=== PATIENT | female | born 1990 | race Caucasian/White ===

== ENCOUNTER 2017-07-18 04:09 | Inpatient (IN) | payer OTHER ==
[2017-07-18] MEDS ORDERED: Nalbuphine 20 MG/1 ML Amp IVPUSH PRN (04:50)
[2017-07-18] MEDS ORDERED: Sodium Chloride 0.9% 10 ML Syringe FLUSH PRN (04:50)
[2017-07-18] MEDS ORDERED: Oxytocin/Lactated Ringers 10 UNIT/1,000 ML BAG IV SCH (05:00)
[2017-07-18] MEDS: Lactated Ringers 1,000 ML IV SCH ×3 (05:10→06:37)
[2017-07-18] MEDS ORDERED: Ondansetron 4 MG/2 ML SDV IVPUSH PRN (05:35)
[2017-07-18] MEDS ORDERED: fentaNYL 100 MCG/2 ML SDV EPIDUR PRN (05:35)
[2017-07-18] MEDS ORDERED: ePHEDrine 50 MG/ML SDV IVPUSH PRN (05:35)
--- NOTE | 2017-07-18 05:40 | PCM.PREANE ---
Preanesthetic Assessment - Anesthesia/Transfusion/Family Hx Anesthesia History: Prior Anesthesia Without Reaction Family History of Anesthesia Reaction: No Transfusion History: No Prior Transfusion(s) Intubation History: Unknown - Review of Systems General: No Symptoms Pulmonary: No Symptoms Cardiovascular: Lightheadedness (dehydration with per patient (not often)) Gastrointestinal: No Symptoms (GERD), Constipation Neurological: No Symptoms Other: Reports: None (history of kidney stones with .), Sinus Problem ( seasonal allergies) - Physical Assessment NPO Status Date: 07/17/17 NPO Status Time: 19:00 Pulse: 66 O2 Sat by Pulse Oximetry: 100 Respiratory Rate: 14 Blood Pressure: 114/59 Temperature: 36.6 C Vital Signs: Last Vital Signs Temp 36.6 C 07/18/17 04:50 Pulse 66 07/18/17 04:50 Resp 14 07/18/17 04:50 BP 114/59 L 07/18/17 04:50 Pulse Ox 100 07/18/17 04:50 Height: 1.73 m Weight: 68.583 kg ASA Class: 2 Mental Status: Alert & Oriented x3 Dentition: Reports: Normal Dentition (bottom permanent retainer noted.), Caries Thyro-Mental Finger Breadths: 3 Mouth Opening Finger Breadths: 3 ROM/Head Extension: Full Lungs: Clear to Auscultation, Normal Respiratory Effort Cardiovascular: Regular Rate, Regular Rhythm, No Murmurs - Lab Values: Laboratory Last Values WBC 12.39 K/mm3 (3.98-10.04) H 07/18/17 04:55 RBC 4.08 M/mm3 (3.98-5.22) 07/18/17 04:55 Hgb 11.7 gm/L (11.2-15.7) 07/18/17 04:55 Hct 34.7 % (34.1-44.9) 07/18/17 04:55 MCV 85.0 fl (79.4-94.8) 07/18/17 04:55 MCH 28.7 pg (25.6-32.2) 07/18/17 04:55 MCHC 33.7 g/dl (32.2-35.5) 07/18/17 04:55 RDW Std Deviation 41.0 fL (36.4-46.3) 07/18/17 04:55 Plt Count 250 K/mm3 (182-369) 07/18/17 04:55 MPV 9.6 fl (9.4-12.3) 07/18/17 04:55 Neut % (Auto) 73.2 % (34.0-71.1) H 07/18/17 04:55 Lymph % (Auto) 15.8 % (19.3-51.7) L 07/18/17 04:55 [place] % (Auto) 7.7 % (4.7-12.5) 07/18/17 04:55 Eos % (Auto) 2.5 (0.7-5.8) 07/18/17 04:55 Baso % (Auto) 0.2 % (0.1-1.2) 07/18/17 04:55 Neut # (Auto) 9.06 K/mm3 (1.56-6.13) H 07/18/17 04:55 Lymph # (Auto) 1.96 K/mm3 (1.18-3.74) 07/18/17 04:55 [place] # (Auto) 0.95 K/mm3 (0.24-0.36) H 07/18/17 04:55 Eos # (Auto) 0.31 K/mm3 (0.04-0.36) 07/18/17 04:55 Baso # (Auto) 0.03 K/mm3 (0.01-0.08) 07/18/17 04:55 Above labs reviewed and noted. - Allergies Allergies/Adverse Reactions: Allergies Allergy/AdvReac Type Severity Reaction Status Date / Time amoxicillin trihydrate Allergy Hives Verified 07/18/17 04:58 [From Augmentin] potassium clavulanate Allergy Hives Verified 07/18/17 04:58 [From Augmentin] - Anesthesia Plan Pre-Op Medication Ordered: None - Acknowledgements Anesthesia Type Planned: Epidural Pt an Appropriate Candidate for the Planned Anesthesia: Yes Alternatives and Risks of Anesthesia Discussed w Pt/Guardian: Yes Pt/Guardian Understands and Agrees with Anesthesia Plan: Yes PreAnesthesia Questionnaire - Past Health History 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 History: Denies 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 History 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: - Past Surgical History HEENT Surgical History: Reports: Other (See Below) Other HEENT Surgeries/Procedures: [place] teeth 2004 - SUBSTANCE USE Smoking Status *Q: Never Smoker Second Hand Smoke Exposure: No Recreational Drug Use History: No - HOME MEDS Home Medications: Home Meds PNV95/Ferrous Fumarate/FA [ Tablet] 1 tab PO DAILY 07/18/17 [History] - CURRENT (IN HOUSE) MEDS Current Meds: Current Medications Ephedrine Sulfate (Ephedrine Sulfate) 5 mg IVPUSH ASDIRECTED PRN PRN Reason: Hypotension Fentanyl (Sublimaze) 100 mcg EPIDUR Q3H PRN PRN Reason: Pain Fentanyl/Bupivacaine HCl (Fentanyl/Bupivacaine/Ns 2 Mcg-0.125% 100 Ml) 100 ml EPIDUR ASDIRECTED SHIRLENE Lactated Ringer's (Ringers, Lactated) 1,000 mls @ 100 mls/hr IV ASDIRECTED SHIRLENE Oxytocin/Lactated Ringer's (Pitocin In Lr 10 Units/1,000 Ml) 10 unit in 1,000 mls @ 500 mls/hr IV .CONTINUOUS SHIRLENE Nalbuphine HCl (Nubain) 10 mg IVPUSH Q2H PRN PRN Reason: Pain (moderate 4-6) Ondansetron HCl (Zofran) 4 mg IVPUSH ONETIME PRN PRN Reason: Nausea/Vomiting Sodium Chloride (Saline Flush) 10 ml FLUSH ASDIRECTED PRN PRN Reason: Keep Vein Open
[2017-07-18] MEDS ORDERED: Bupivacaine/fentaNYL/NS 100 ML Bag EPIDUR SCH (05:45)
--- NOTE | 2017-07-18 07:19 | PCM.LDHP ---
L&D History of Present Illness - General Date of Service: 07/18/17 Admit Problem/Dx: Patient Status Order with Admit Dx/Problem 07/18/17 04:50 Patient Status [ADT] Routine Admission Diagnosis/Problem Admission Diagnosis/Problem Source of Information: Patient History Limitations: Reports: No Limitations - History of Present Illness Introduction:: Patient is a 26 y/o at 39 4/7 wks who presents for labor. Contractions started last PM. They became more consistent overnight. Came in and was 5-6 cm dilated on nursing exam. Now comfortable with an epidural. 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: : 3 Para: 2 LMP (Approximate): - Past Surgical History HEENT Surgical History: Reports: Other (See Below) Other HEENT Surgeries/Procedures: [place] teeth 2004 Social & Family History - Family History Family Medical History: Noncontributory - Tobacco Use Smoking Status *Q: Never Smoker Second Hand Smoke Exposure: No - Caffeine Use Caffeine Use: Reports: Coffee Other Caffeine Use: daily - Alcohol Use Alcohol Use History: No - Recreational Drug Use Recreational Drug Use: No H&P Review of Systems - Review of Systems: Review Of Systems: See Below General: Reports: No Symptoms Pulmonary: Reports: No Symptoms Cardiovascular: Reports: No Symptoms Gastrointestinal: Reports: No Symptoms Genitourinary: Reports: No Symptoms Musculoskeletal: Reports: No Symptoms Psychiatric: Reports: No Symptoms L&D Exam - Exam Exam: See Below - Vital Signs Vital Signs: Last Vital Signs Temp 36.6 C 07/18/17 05:52 Pulse 66 07/18/17 05:52 Resp 14 07/18/17 05:52 BP 114/59 L 07/18/17 05:52 Pulse Ox 100 07/18/17 05:52 Weight: 68.583 kg - OB Specific Contraction Intensity: Moderate to Strong Movement: Active Heart Tones: Present Heart Rate (FHR) Variability: Moderate (6-25 bmp) Presentation: Vertex - Lopez Score Lopez Score Cervix Position: Anterior Lopez Score Consistency: Soft Lopez Score Effacement: >80% Lopez Score Dilation: > 5 cm Lopez Score Infant's Station: +1, +2 Lopez Score Total: 13 - Exam General: Alert, Oriented, Cooperative Lungs: Clear to Auscultation, Normal Respiratory Effort Cardiovascular: Regular Rate, Regular Rhythm GI/Abdominal Exam: Soft, Non-Tender Genitourinary: Normal external exam Extremities: Normal Inspection Skin: Warm, Dry, Intact - Patient Data Lab Results Last 24 hrs: Laboratory Results - last 24 hr 07/18/17 07/18/17 Range/Units 04:55 04:55 WBC 12.39 H (3.98-10.04) K/mm3 RBC 4.08 (3.98-5.22) M/mm3 Hgb 11.7 (11.2-15.7) gm/L Hct 34.7 (34.1-44.9) % MCV 85.0 (79.4-94.8) fl MCH 28.7 (25.6-32.2) pg MCHC 33.7 (32.2-35.5) g/dl RDW Std Deviation 41.0 (36.4-46.3) fL Plt Count 250 (182-369) K/mm3 MPV 9.6 (9.4-12.3) fl Neut % (Auto) 73.2 H (34.0-71.1) % Lymph % (Auto) 15.8 L (19.3-51.7) % [place] % (Auto) 7.7 (4.7-12.5) % Eos % (Auto) 2.5 (0.7-5.8) Baso % (Auto) 0.2 (0.1-1.2) % Neut # (Auto) 9.06 H (1.56-6.13) K/mm3 Lymph # (Auto) 1.96 (1.18-3.74) K/mm3 [place] # (Auto) 0.95 H (0.24-0.36) K/mm3 Eos # (Auto) 0.31 (0.04-0.36) K/mm3 Baso # (Auto) 0.03 (0.01-0.08) K/mm3 Blood Type B POSITIVE Gel Antibody Screen Negative Result Diagrams: 07/18/17 04:55 - Problem List (1) 39 weeks gestation of SNOMED Code(s): 86164569 ICD Code: Z3A.39 - 39 WEEKS GESTATION OF Status: Acute Current Visit: Yes (2) Normal labor SNOMED Code(s): 14011375 ICD Code: O80 - ENCOUNTER FOR FULL-TERM UNCOMPLICATED DELIVERY; Z37.9 - OUTCOME OF DELIVERY, UNSPECIFIED Status: Acute Current Visit: Yes Problem List Initiated/Reviewed/Updated: Yes Orders Last 24hrs: Active Orders 24 hr Category Date Time Status Patient Status [ADT] Routine ADT 07/18/17 04:50 Active Activity as Tolerated [RC] PFP Care 07/18/17 04:50 Active Communication Order [RC] ASDIRECTED Care 07/18/17 04:50 Active Heart Tones [RC] ASDIRECTED Care 07/18/17 04:51 Active Notify Provider [RC] ASDIRECTED Care 07/18/17 05:36 Active Notify Provider [RC] PFP Care 07/18/17 04:50 Active Notify Provider [RC] PRN Care 07/18/17 04:50 Active Oxygen Therapy [RC] ASDIRECTED Care 07/18/17 05:36 Active Peripheral IV Care [RC] . DIRECTED Care 07/18/17 04:51 Active Pulse Oximetry [RC] ASDIRECTED Care 07/18/17 05:36 Active Vital Signs [RC] PER UNIT ROUTINE Care 07/18/17 04:50 Active Regular Diet [DIET] Diet 07/18/17 Breakfast Active Bupivacaine/fentaNYL/NS [fentaNYL/Bupivacaine/NS 2 MCG- Med 07/18/17 05:45 Active 0.125% 100 ML] 100 ml EPIDUR ASDIRECTED Lactated Ringers [Ringers, Lactated] 1,000 ml Med 07/18/17 05:00 Active IV ASDIRECTED Nalbuphine [Nubain] Med 07/18/17 04:50 Active 10 mg IVPUSH Q2H PRN Ondansetron [Zofran] Med 07/18/17 05:35 Active 4 mg IVPUSH ONETIME PRN Oxytocin/Lactated Ringers [Pitocin in LR 10 Units/1,000 Med 07/18/17 05:00 Active ML] 10 unit in 1,000 ml IV .CONTINUOUS Sodium Chloride 0.9% [Saline Flush] Med 07/18/17 04:50 Active 10 ml FLUSH ASDIRECTED PRN ePHEDrine [ePHEDrine Sulfate] Med 07/18/17 05:35 Active 5 mg IVPUSH ASDIRECTED PRN fentaNYL [Sublimaze] Med 07/18/17 05:35 Active 100 mcg EPIDUR Q3H PRN Electronic Heart Tones Ext w TOCO [WOMSER] Oth 07/18/17 04:50 Ordered Routine Electronic Heart Tones Internal [WOMSER] Per Unit Ot 07/18/17 04:50 Ordered Routine Peripheral IV Insertion Adult [OM.PC] Routine Ot 07/18/17 04:50 Ordered Resuscitation Status Routine Resus Stat 07/18/17 04:50 Ordered Medication Orders Ephedrine Sulfate (Ephedrine Sulfate) 5 mg IVPUSH ASDIRECTED PRN PRN Reason: Hypotension Fentanyl (Sublimaze) 100 mcg EPIDUR Q3H PRN PRN Reason: Pain Last Admin: 07/18/17 05:53 Dose: 100 mcg Fentanyl/Bupivacaine HCl (Fentanyl/Bupivacaine/Ns 2 Mcg-0.125% 100 Ml) 100 ml EPIDUR ASDIRECTED [facility] Last Admin: 07/18/17 05:53 Dose: 100 ml Lactated Ringer's (Ringers, Lactated) 1,000 mls @ 100 mls/hr IV ASDIRECTED [facility] Last Admin: 07/18/17 06:37 Dose: 125 mls/hr Infusion: 07/18/17 06:37 Dose: 999 mls/hr Admin: 07/18/17 05:41 Dose: 999 mls/hr Infusion: 07/18/17 05:41 Dose: 999 mls/hr Admin: 07/18/17 05:10 Dose: 999 mls/hr Oxytocin/Lactated Ringer's (Pitocin In Lr 10 Units/1,000 Ml) 10 unit in 1,000 mls @ 500 mls/hr IV .CONTINUOUS [facility] Nalbuphine HCl (Nubain) 10 mg IVPUSH Q2H PRN PRN Reason: Pain (moderate 4-6) Ondansetron HCl (Zofran) 4 mg IVPUSH ONETIME PRN PRN Reason: Nausea/Vomiting Sodium Chloride (Saline Flush) 10 ml FLUSH ASDIRECTED PRN PRN Reason: Keep Vein Open Assessment/Plan Comment:: 26 y/o at 39 4/7 wks presents in labor * GBS negative, no need for antibiotics * Epidural in place * Anticipate Cheryl López MD
--- NOTE | 2017-07-18 08:46 | PCM.DEL ---
L & D Note - General Info Date of Service: 07/18/17 - Delivery Note Labor: Spontaneous Delivery Outcome: Livebirth Delivery Method: Spontaneous Vaginal Delivery Delivery Mode: Spontaneous Presentation: Left Occiput Anterior (CORBY) Nuchal Cord: None Anesthesia Type: Epidural Amniotic Fluid Description: Clear Episiotomy Type: None Laceration: 2nd Degree, Perineal Suture type: Vicryl Suture size: 2-0 Placenta: Intact, Spontaneous Cord: 3 Vessels Estimated Blood Loss: 250 Resuscitation Needed: Yes [place]: Suctioned, Bulb Syringe, Stimulated, Warmed, Warmer Used Score 1 min: 8 Score 5 min: 9 Delivery Comments (Free Text/Narrative):: Patient found to be complete and began pushing. With maternal pushing effort head delivered from an CORBY presentation. No nuchal cord present. With gentle downward traction the shoulders and body delivered. Infant placed on maternal abdomen. Cord clamped and cut. Cord blood obtained. Placenta allowed time to separate and spontaneously expelled. Inspection of the perineum showed a second-degree laceration repaired with a 2-0 Vicryl in the typical fashion. - Patient Data Vitals - Most Recent: Last Vital Signs Temp 36.6 C 07/18/17 05:52 Pulse 66 07/18/17 05:52 Resp 14 07/18/17 05:52 BP 114/59 L 07/18/17 05:52 Pulse Ox 100 07/18/17 05:52 Weight - Most Recent: 68.583 kg Lab Results Last 24 Hours: Laboratory Results - last 24 hr 07/18/17 07/18/17 Range/Units 04:55 04:55 WBC 12.39 H (3.98-10.04) K/mm3 RBC 4.08 (3.98-5.22) M/mm3 Hgb 11.7 (11.2-15.7) gm/L Hct 34.7 (34.1-44.9) % MCV 85.0 (79.4-94.8) fl MCH 28.7 (25.6-32.2) pg MCHC 33.7 (32.2-35.5) g/dl RDW Std Deviation 41.0 (36.4-46.3) fL Plt Count 250 (182-369) K/mm3 MPV 9.6 (9.4-12.3) fl Neut % (Auto) 73.2 H (34.0-71.1) % Lymph % (Auto) 15.8 L (19.3-51.7) % [place] % (Auto) 7.7 (4.7-12.5) % Eos % (Auto) 2.5 (0.7-5.8) Baso % (Auto) 0.2 (0.1-1.2) % Neut # (Auto) 9.06 H (1.56-6.13) K/mm3 Lymph # (Auto) 1.96 (1.18-3.74) K/mm3 [place] # (Auto) 0.95 H (0.24-0.36) K/mm3 Eos # (Auto) 0.31 (0.04-0.36) K/mm3 Baso # (Auto) 0.03 (0.01-0.08) K/mm3 Blood Type B POSITIVE Gel Antibody Screen Negative Med Orders - Current: Current Medications Ephedrine Sulfate (Ephedrine Sulfate) 5 mg IVPUSH ASDIRECTED PRN PRN Reason: Hypotension Fentanyl (Sublimaze) 100 mcg EPIDUR Q3H PRN PRN Reason: Pain Last Admin: 07/18/17 05:53 Dose: 100 mcg Fentanyl/Bupivacaine HCl (Fentanyl/Bupivacaine/Ns 2 Mcg-0.125% 100 Ml) 100 ml EPIDUR ASDIRECTED SHIRLENE Last Admin: 07/18/17 05:53 Dose: 100 ml Lactated Ringer's (Ringers, Lactated) 1,000 mls @ 100 mls/hr IV ASDIRECTED SHIRLENE Last Admin: 07/18/17 06:37 Dose: 125 mls/hr Oxytocin/Lactated Ringer's (Pitocin In Lr 10 Units/1,000 Ml) 10 unit in 1,000 mls @ 500 mls/hr IV .CONTINUOUS SHIRLENE Last Admin: 07/18/17 08:41 Dose: 500 mls/hr Nalbuphine HCl (Nubain) 10 mg IVPUSH Q2H PRN PRN Reason: Pain (moderate 4-6) Ondansetron HCl (Zofran) 4 mg IVPUSH ONETIME PRN PRN Reason: Nausea/Vomiting Sodium Chloride (Saline Flush) 10 ml FLUSH ASDIRECTED PRN PRN Reason: Keep Vein Open - Problem List & Annotations (1) 39 weeks gestation of SNOMED Code(s): 69241572 Code(s): Z3A.39 - 39 WEEKS GESTATION OF Status: Acute Current Visit: Yes (2) Normal labor SNOMED Code(s): 54631575 Code(s): O80 - ENCOUNTER FOR FULL-TERM UNCOMPLICATED DELIVERY; Z37.9 - OUTCOME OF DELIVERY, UNSPECIFIED Status: Acute Current Visit: Yes (3) Vaginal delivery SNOMED Code(s): 436544251 Code(s): O80 - ENCOUNTER FOR FULL-TERM UNCOMPLICATED DELIVERY Status: Acute Current Visit: Yes - Problem List Review Problem List Initiated/Reviewed/Updated: Yes - My Orders Last 24 Hours: My Active Orders 07/18/17 04:50 Patient Status [ADT] Routine Activity as Tolerated [RC] PFP Communication Order [RC] ASDIRECTED Notify Provider [RC] PFP Notify Provider [RC] PRN Vital Signs [RC] PER UNIT ROUTINE Nalbuphine [Nubain] 10 mg IVPUSH Q2H PRN Sodium Chloride 0.9% [Saline Flush] 10 ml FLUSH ASDIRECTED PRN Electronic Heart Tones Ext w TOCO [WOMSER] Routine Electronic Heart Tones Internal [WOMSER] Per Unit Routine Peripheral IV Insertion Adult [OM.PC] Routine Resuscitation Status Routine 07/18/17 04:51 Heart Tones [RC] ASDIRECTED Peripheral IV Care [RC] . DIRECTED 07/18/17 05:00 Lactated Ringers [Ringers, Lactated] 1,000 ml IV ASDIRECTED Oxytocin/Lactated Ringers [Pitocin in LR 10 Units/1,000 ML] 10 unit in 1,000 ml IV .CONTINUOUS 07/18/17 Breakfast Regular Diet [DIET] - Assessment Assessment:: 26 y/o G3 now P3003 PPD#0 from at 39 4/7 wks - Plan Plan:: * Routine cares * Encourage breast feeding * Discharge home in 1-2 days Cheryl López MD
[2017-07-18] MEDS ORDERED: Witch Hazel Medicated Pads 100/Jar TOP PRN (09:00)
[2017-07-18] MEDS ORDERED: Bupivacaine 0.25% 10 ML SDV ONE ×2 (09:00)
[2017-07-18] MEDS ORDERED: Benzocaine/Menthol 20%-0.5% Spray 56 GM Canister TOP PRN (09:00)
[2017-07-18] MEDS ORDERED: Acetaminophen 325 MG Tab PO PRN (09:00)
[2017-07-18] MEDS ORDERED: Lanolin 100% Cream 7 GM Tube TOP PRN (09:00)
[2017-07-18] MEDS: Ibuprofen 600 MG Tab PO PRN ×2 (15:25→20:22)
[2017-07-18] MEDS: Docusate Sodium 100 MG Cap PO PRN (20:22)
[2017-07-19 05:17] VITALS: BP 122/64
--- NOTE | 2017-07-19 06:34 | PCM.PNPP ---
- General Info Date of Service: 07/19/17 Functional Status: Reports: Pain Controlled, Tolerating Diet, Ambulating, Urinating - Review of Systems General: Reports: No Symptoms Pulmonary: Reports: No Symptoms Cardiovascular: Reports: No Symptoms Gastrointestinal: Reports: No Symptoms Genitourinary: Reports: No Symptoms Musculoskeletal: Reports: No Symptoms - Patient Data Vital Signs - Most Recent: Last Vital Signs Temp 36.2 C 07/19/17 04:00 Pulse 74 07/19/17 04:00 Resp 15 07/19/17 04:00 BP 122/64 07/19/17 04:00 Pulse Ox 99 07/19/17 04:00 Weight - Most Recent: 68.583 kg I&O - Last 24 Hours: Intake & Output 07/18/17 07/18/17 07/19/17 14:59 22:59 06:59 Intake Total 120 Balance 120 Med Orders - Current: Current Medications Acetaminophen (Tylenol) 650 mg PO Q4H PRN PRN Reason: mild pain or fever Last Admin: 07/19/17 02:48 Dose: 650 mg Benzocaine/Menthol (Dermoplast Pain Relief [place]) 0 gm TOP ASDIRECTED PRN PRN Reason: Perineal Comfort Measure Last Admin: 07/18/17 12:13 Dose: 1 can Docusate Sodium (Colace) 100 mg PO BID PRN PRN Reason: Constipation Last Admin: 07/18/17 20:22 Dose: 100 mg Emollient Ointment (Lansinoh Hpa) 0 gm TOP ASDIRECTED PRN PRN Reason: Sore Nipples Ibuprofen (Motrin) 600 mg PO Q6H PRN PRN Reason: Mild pain or fever Last Admin: 07/18/17 20:22 Dose: 600 mg [place] (Tucks) 1 pad TOP ASDIRECTED PRN PRN Reason: Hemorrhoid pain Last Admin: 07/18/17 12:13 Dose: 1 box Discontinued Medications Ephedrine Sulfate (Ephedrine Sulfate) 5 mg IVPUSH ASDIRECTED PRN PRN Reason: Hypotension Fentanyl (Sublimaze) 100 mcg EPIDUR Q3H PRN PRN Reason: Pain Last Admin: 07/18/17 05:53 Dose: 100 mcg Fentanyl/Bupivacaine HCl (Fentanyl/Bupivacaine/Ns 2 Mcg-0.125% 100 Ml) 100 ml EPIDUR ASDIRECTED SHIRLENE Last Admin: 07/18/17 05:53 Dose: 100 ml Lactated Ringer's (Ringers, Lactated) 1,000 mls @ 100 mls/hr IV ASDIRECTED [facility] Last Admin: 07/18/17 06:37 Dose: 125 mls/hr Oxytocin/Lactated Ringer's (Pitocin In Lr 10 Units/1,000 Ml) 10 unit in 1,000 mls @ 500 mls/hr IV .CONTINUOUS [facility] Last Admin: 07/18/17 08:41 Dose: 500 mls/hr Nalbuphine HCl (Nubain) 10 mg IVPUSH Q2H PRN PRN Reason: Pain (moderate 4-6) Ondansetron HCl (Zofran) 4 mg IVPUSH ONETIME PRN PRN Reason: Nausea/Vomiting Sodium Chloride (Saline Flush) 10 ml FLUSH ASDIRECTED PRN PRN Reason: Keep Vein Open - Interaction Infant Disposition, : in Room with Family Interaction: Holding Infant Infant Feeding: Breastfed Infant; Nursed Well Support Person: - Recovery Exam Fundal Tone: Firm Fundal Level: 1 Fingerbreadths Below Umbilicus Fundal Placement: Midline Lochia Amount: Small, Moderate Lochia Color: Rubra/Red Perineum Description: Other (see below) Other Perinuem Description: 2nd degree with repair Episiotomy/Laceration: Approximated Bladder Status: Voiding Urinary Elimination: Voided - Exam General: Alert, Oriented, Cooperative GI/Abdominal Exam: Soft, Non-Tender Extremities: Normal Inspection Skin: Warm, Dry, Intact - Problem List & Annotations (1) 39 weeks gestation of SNOMED Code(s): 19064568 Code(s): Z3A.39 - 39 WEEKS GESTATION OF Status: Acute (2) Normal labor SNOMED Code(s): 58542740 Code(s): O80 - ENCOUNTER FOR FULL-TERM UNCOMPLICATED DELIVERY; Z37.9 - OUTCOME OF DELIVERY, UNSPECIFIED Status: Acute (3) Vaginal delivery SNOMED Code(s): 171970490 Code(s): O80 - ENCOUNTER FOR FULL-TERM UNCOMPLICATED DELIVERY Status: Acute - Problem List Review Problem List Initiated/Reviewed/Updated: Yes - My Orders Last 24 Hours: My Active Orders 07/18/17 09:00 Activity as Tolerated [RC] PER UNIT ROUTINE Vital Signs [RC] 12,20,04 Acetaminophen [Tylenol] 650 mg PO Q4H PRN Benzocaine/Menthol [Dermoplast Pain Relief [place]] See Dose Instructions TOP ASDIRECTED PRN Docusate Sodium [Colace] 100 mg PO BID PRN Ibuprofen [Motrin] 600 mg PO Q6H PRN Lanolin [Lansinoh HPA] See Dose Instructions TOP ASDIRECTED PRN [place] [Tucks] 1 pad TOP ASDIRECTED PRN Assess Lochia [WOMSER] Per Unit Routine Assess Uterine Involution [WOMSER] Per Unit Routine Breast Pump [WOMSER] Per Unit Routine Heat Therapy [OM.PC] PRN Ice Therapy [OM.PC] Per Unit Routine Perineal Care [OM.PC] Per Unit Routine Peripheral IV Discontinue [OM.PC] Routine Sitz Bath [OM.PC] Per Unit Routine 07/18/17 Breakfast Regular Diet [DIET] 07/19/17 06:34 Ready for Discharge [RC] PER UNIT ROUTINE 07/19/17 09:00 Heat Therapy [OM.PC] PRN - Assessment Assessment:: 26 y/o G3 now P3003 PPD#1 from at 39 4/7 wks - Plan Plan:: * Routine cares * Encourage breast feeding * Discharge home today Cheryl López MD
--- NOTE | 2017-07-19 06:34 | PCM.DCSUM1 ---
Discharge Summary - Discharge Data Discharge Date: 07/19/17 Discharge Disposition: Home, Self-Care 01 Condition: Good - Discharge Diagnosis/Problem(s) (1) 39 weeks gestation of SNOMED Code(s): 53125610 ICD Code: Z3A.39 - 39 WEEKS GESTATION OF Status: Acute (2) Normal labor SNOMED Code(s): 55464850 ICD Code: O80 - ENCOUNTER FOR FULL-TERM UNCOMPLICATED DELIVERY; Z37.9 - OUTCOME OF DELIVERY, UNSPECIFIED Status: Acute (3) Vaginal delivery SNOMED Code(s): 593582200 ICD Code: O80 - ENCOUNTER FOR FULL-TERM UNCOMPLICATED DELIVERY Status: Acute - Patient Summary/Data Complications: None Consults: None Recommended Follow-up Testing/Procedures: Follow up in 5-6 weeks for check Hospital Course: Patient is a 26 y/o at 39 4/7 wks presented in labor. She progressed well and underwent an uncomplicated . See delivery note. she was meeting all goals and requested discharge home on PPD#1 - Patient Instructions Diet: Regular Diet as Tolerated Activity: As Tolerated Activity, Other: Pelvic Rest for 6 weeks Driving: May Drive Today Showering/Bathing: May Shower Showering/Bathing, Other: May bathe Notify Provider of: Fever, Increased Pain, Swelling and Redness, Drainage, Nausea and/or Vomiting - Discharge Plan Home Medications: Home Meds Docusate Sodium [Colace] 100 mg PO BID PRN #0 cap 07/18/17 [Rx] Ibuprofen [IJD: Ibuprofen] 600 mg PO Q6H PRN #0 tablet 07/18/17 [Rx] PNV95/Ferrous Fumarate/FA [ Tablet] 1 tab PO DAILY 07/18/17 [History] Patient Handouts: Home Care Instructions for Mom, Challenges and Solutions Referrals: Justin Bradford MD [Physician] - (5-6 weeks for check) - Discharge Summary/Plan Comment DC Time >30 min.: No - Patient Data Vitals - Most Recent: Last Vital Signs Temp 36.2 C 07/19/17 04:00 Pulse 74 07/19/17 04:00 Resp 15 07/19/17 04:00 BP 122/64 07/19/17 04:00 Pulse Ox 99 07/19/17 04:00 Weight - Most Recent: 68.583 kg I&O - Last 24 hours: Intake & Output 07/18/17 07/18/17 07/19/17 14:59 22:59 06:59 Intake Total 120 Balance 120 Med Orders - Current: Current Medications Acetaminophen (Tylenol) 650 mg PO Q4H PRN PRN Reason: mild pain or fever Last Admin: 07/19/17 02:48 Dose: 650 mg Benzocaine/Menthol (Dermoplast Pain Relief [place]) 0 gm TOP ASDIRECTED PRN PRN Reason: Perineal Comfort Measure Last Admin: 07/18/17 12:13 Dose: 1 can Docusate Sodium (Colace) 100 mg PO BID PRN PRN Reason: Constipation Last Admin: 07/18/17 20:22 Dose: 100 mg Emollient Ointment (Lansinoh Hpa) 0 gm TOP ASDIRECTED PRN PRN Reason: Sore Nipples Ibuprofen (Motrin) 600 mg PO Q6H PRN PRN Reason: Mild pain or fever Last Admin: 07/18/17 20:22 Dose: 600 mg [place] (Tucks) 1 pad TOP ASDIRECTED PRN PRN Reason: Hemorrhoid pain Last Admin: 07/18/17 12:13 Dose: 1 box Discontinued Medications Ephedrine Sulfate (Ephedrine Sulfate) 5 mg IVPUSH ASDIRECTED PRN PRN Reason: Hypotension Fentanyl (Sublimaze) 100 mcg EPIDUR Q3H PRN PRN Reason: Pain Last Admin: 07/18/17 05:53 Dose: 100 mcg Fentanyl/Bupivacaine HCl (Fentanyl/Bupivacaine/Ns 2 Mcg-0.125% 100 Ml) 100 ml EPIDUR ASDIRECTED SHIRLENE Last Admin: 07/18/17 05:53 Dose: 100 ml Lactated Ringer's (Ringers, Lactated) 1,000 mls @ 100 mls/hr IV ASDIRECTED SHIRLENE Last Admin: 07/18/17 06:37 Dose: 125 mls/hr Oxytocin/Lactated Ringer's (Pitocin In Lr 10 Units/1,000 Ml) 10 unit in 1,000 mls @ 500 mls/hr IV .CONTINUOUS SHIRLENE Last Admin: 07/18/17 08:41 Dose: 500 mls/hr Nalbuphine HCl (Nubain) 10 mg IVPUSH Q2H PRN PRN Reason: Pain (moderate 4-6) Ondansetron HCl (Zofran) 4 mg IVPUSH ONETIME PRN PRN Reason: Nausea/Vomiting Sodium Chloride (Saline Flush) 10 ml FLUSH ASDIRECTED PRN PRN Reason: Keep Vein Open *Q Meaningful Use (DIS) - VTE *Q VTE Criteria *Q: - Stroke *Q Stroke Criteria *Q: - AMI *Q AMI Criteria *Q:
[2017-07-19] MEDS: Docusate Sodium 100 MG Cap PO PRN (09:35)
== END 2017-07-19 11:00 | disposition home or self-care (01) | DRG 775 ==
LOC: JD.OBCHECK 04:09 → JD.OB 04:12 → JD.OBCHECK 04:54 → JD.OB 04:57 → OBSVTOIN 08:33
PROVIDERS: ADMIT Obstetrics & Gynecology; ATTEND Obstetrics & Gynecology
PROC: 10E0XZZ Delivery of Products of Conception, External Approach (ICD-10-PCS; principal; 2017-07-18)
PROC: 0KQM0ZZ Repair Perineum Muscle, Open Approach (ICD-10-PCS; 2017-07-18)
PROC: 4A1HXFZ Monitoring of Products of Conception, Cardiac Rhythm, External Approach (ICD-10-PCS; 2017-07-18)
PROC: 00HU33Z Insertion of Infusion Device into Spinal Canal, Percutaneous Approach (ICD-10-PCS; 2017-07-18)
PROC: 3E0R3CZ (ICD-10-PCS; 2017-07-18)
PROC: 10907ZC Drainage of Amniotic Fluid, Therapeutic from Products of Conception, Via Natural or Artificial Opening (ICD-10-PCS; 2017-07-18)
DX: O70.1 Second degree perineal laceration during delivery (principal); Z37.0 Single live birth; Z3A.39 39 weeks gestation of pregnancy; Z88.1 Allergy status to other antibiotic agents
CPT/HCPCS: 36415; 85025; 86850; 86900; 86901; A9270-GY; J2590; J3010; J7120

== ENCOUNTER 2020-07-28 13:06 | Inpatient (IN) | payer OTHER ==
[~2020-07-28 13:06] MED LIST: Bupivacaine 0.25% 10 ML SDV ONE
[2020-07-28] MEDS ORDERED: Acetaminophen 325 MG Tab PO PRN ×2 (16:18→20:17)
[2020-07-28] MEDS ORDERED: Sodium Chloride 0.9% 10 ML Syringe FLUSH PRN (16:18)
[2020-07-28] MEDS ORDERED: Nalbuphine 10 MG/ML Syringe IVPUSH PRN (16:18)
[2020-07-28] MEDS: Lactated Ringers 1,000 ML IV SCH ×3 (16:30→18:03)
[2020-07-28] MEDS ORDERED: Oxytocin/Lactated Ringers 10 UNIT/1,000 ML BAG IV SCH ×2 (16:30)
--- NOTE | 2020-07-28 16:59 | PCM.LDHP ---
<Shanna Sue - Last Filed: 07/28/20 16:51> L&D History of Present Illness - General Date of Service: 07/28/20 Admit Problem/Dx: Patient Status Order with Admit Dx/Problem 07/28/20 13:15 Patient Status [ADT] Routine 07/28/20 16:18 Patient Status [ADT] Routine Admission Diagnosis/Problem Admission Diagnosis/Problem 07/28/20 16:51 Jovon Cruz is a 29 YO at 39 weeks and 5 days gestational age who presents to Labor and Delivery with contractions. Her LEXX is 07/30/2020. 07/28/20 16:53 Source of Information: Patient History Limitations: Reports: No Limitations - History of Present Illness Introduction:: Jovon Cruz is a 29 YO at 39 weeks and 5 days gestational age who presents to Labor and Delivery with contractions. Her LEXX is 07/30/2020. She is experiencing intermittent contractions that are worse while walking around. She rated them a 7 on a scale from 1-10. Laying down relieves the pain. She denies any radiation of pain. She states that the contractions are periodic in nature. Menarche at 17 YO. Cycles are regular being every 32 days. Menses last 7-10 days and have been progressively heavier after each . She states she goes through 6-7 super tampons during menses. Jovon endorses one bout of palpitations approximately "one month ago" where she could "feel her heart pounding" but went back into a normal rhythm soon after. She has a history of wearing a Holter monitor in the past. Follow up was not warranted. She has had an otherwise uncomplicated . She denies fatigue, fever, headache, vision changes, sore throat, congestion, epistaxis, chest pain, shortness of breath, constipation or diarrhea, urinary frequency, burning, or irritation, tremors, paresthesias, anemia, thyroid disorder, depression or anxiety. Last menstrual period was 10/17/2019. LEXX by ultrasound performed on 12/26/2019. First visit was on 01/02/2020 and was seen regularly during course. Group B strep was negative. Patient plans to breast feed and for epidural. TDAP was administered on 05/15/2020. Patient is Rubella immune. Influenza vaccination was 09/17/2019 Patient is blood type B positive. First trimester hemoglobin was 13.7 g/dL and platelets were 275 uL. Second trimester hemoglobin was 12.2 and platelets were 258 uL. at 39 weeks and 5 days gestational age presents to L&D with contractions. Routine labor care orders will be placed. Patient plans for epidural and plans to breast feed. Rupture of membranes occurred at 1615. Timing/Duration: Reports: gradual onset, waxing/waning Location, : Reports: Uterus Quality: Reports: Pressure Severity: Moderate Pain Score: 7 Improves with: Reports: Immobilization Worsens with: Reports: Movement - Related Data Allergies/Adverse Reactions: Allergies Allergy/AdvReac Type Severity Reaction Status Date / Time amoxicillin trihydrate Allergy Hives Verified 07/28/20 16:31 [From Augmentin] potassium clavulanate Allergy Hives Verified 07/28/20 16:31 [From Augmentin] Home Medications: Home Meds Pnv No.95/Ferrous Fum/Folic AC [ Tablet] 1 tab PO DAILY 07/18/17 [Histor y] Fexofenadine HCl [Lisa Allergy] 60 mg PO DAILY PRN 07/28/20 [History] Past Medical History - Past Health History 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 History: Denies 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 History Genitourinary History: Reports: Renal Calculus Other Genitourinary History: Kidney stones with PAYROLL 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: - Past Surgical History HEENT Surgical History: Reports: Other (See Below) Other HEENT Surgeries/Procedures: [place] teeth 2004 Social & Family History - Family History Family Medical History: Noncontributory Cardiac: Reports: Hypertension (Father) Musculoskeletal: Reports: Fibromyalgia (Mother) - Tobacco Use Smoking Status *Q: Never Smoker - Tobacco Core Measures Tobacco Use/Smoking Within Last 30 Days: No - Caffeine Use Caffeine Use: Reports: Coffee (One cup of coffee in the AM) Other Caffeine Use: daily - Alcohol Use Alcohol Use History: No - Recreational Drug Use Recreational Drug Use: No - Living Situation & Occupation Living situation: Reports: Occupation: Employed Social History Comment: Feels safe at home with and three children. Maintains a healthy diet and excercise. Traveled to [place], [place] in October 2019. H&P Review of Systems - Review of Systems: Review Of Systems: See Below General: Denies: Fever, Chills, Fatigue, Night Sweats, Weight Loss HEENT: Denies: Eye Pain, Headaches, Hearing Changes, Rhinitis, Sinus Congestion, Sore Throat, Visual Changes Pulmonary: Denies: Shortness of Breath, Pleuritic Chest Pain, Cough, Sputum, Hemoptysis Cardiovascular: Reports: Palpitations (One epidose within the past month where she experienced palpiations without complication. ). Denies: Chest Pain, Edema, Lightheadedness Gastrointestinal: Reports: Nausea (early ), Vomiting (Early ). Denies: Black Stool, Bloody Stool, Constipation, Diarrhea, Difficulty Swallowing Genitourinary: Denies: Dysuria, Frequency, Burning, Pain, Urgency Musculoskeletal: Denies: Muscle Pain, Muscle Stiffness Skin: Denies: Dryness, Pruritis, Rash, Lesions, Lumps Psychiatric: Denies: Depression, Anxiety, Suicidal Ideation, Homicidal Ideation Neurological: Denies: Dizziness, Headache, Numbness, Paresthesia, Tingling, Tremors, Weakness Hematologic/Lymphatic: Denies: Anemia, Easy Bleeding, Easy Bruising Immunologic: Reports: Seasonal Allergy (Augmentin- hives), Other L&D Exam - Exam Exam: See Below - Vital Signs Vital Signs: Last Vital Signs Temp 99 F 07/28/20 13:15 Pulse 78 07/28/20 13:15 Resp 15 07/28/20 13:15 BP 109/66 07/28/20 13:15 Pulse Ox 100 07/28/20 13:15 - OB Specific Contraction Intensity: Moderate Movement: Active Heart Tones: Present - Lopez Score Lopez Score Cervix Position: Posterior Lopez Score Consistency: Soft Lopez Score Effacement: >80% Lopez Score Dilation: 3-4 cm Lopez Score 's Station: +1, +2 Lopez Score Total: 10 - Exam General: Alert, Oriented HEENT: Conjunctiva Clear, Hearing Intact Neck: Supple, Trachea Midline Lungs: Clear to Auscultation, Normal Respiratory Effort Cardiovascular: Regular Rate, Regular Rhythm GI/Abdominal Exam: Other (Gravid) Extremities: Normal Inspection, Normal Range of Motion, No Pedal Edema Skin: Warm, Dry, Intact Psychiatric: Alert, Normal Affect, Normal Mood - Patient Data Lab Results Last 24 hrs: Laboratory Results - last 24 hr 07/28/20 Range/Units 16:30 WBC 9.92 (3.98-10.04) K/mm3 RBC 4.08 (3.98-5.22) M/mm3 Hgb 11.3 (11.2-15.7) gm/dl Hct 35.2 (34.1-44.9) % MCV 86.3 D (79.4-94.8) fl MCH 27.7 (25.6-32.2) pg MCHC 32.1 L (32.2-35.5) g/dl RDW Std Deviation 41.8 (36.4-46.3) fL Plt Count 238 (182-369) K/mm3 MPV 9.8 (9.4-12.3) fl Neut % (Auto) 76.2 H (34.0-71.1) % Lymph % (Auto) 15.8 L (19.3-51.7) % [place]urry % (Auto) 6.5 (4.7-12.5) % Eos % (Auto) 1.0 (0.7-5.8) Baso % (Auto) 0.3 (0.1-1.2) % Neut # (Auto) 7.56 H (1.56-6.13) K/mm3 Lymph # (Auto) 1.57 (1.18-3.74) K/mm3 [place] # (Auto) 0.64 H (0.24-0.36) K/mm3 Eos # (Auto) 0.10 (0.04-0.36) K/mm3 Baso # (Auto) 0.03 (0.01-0.08) K/mm3 Result Diagrams: 07/28/20 16:30 Orders Last 24hrs: Active Orders 24 hr Category Date Time Status Patient Status [ADT] Routine ADT 07/28/20 16:18 Active Activity as Tolerated [RC] PFP Care 07/28/20 16:18 Active Communication Order [RC] ASDIRECTED Care 07/28/20 16:18 Active Heart Tones [RC] ASDIRECTED Care 07/28/20 16:19 Active Notify Provider [RC] PFP Care 07/28/20 16:18 Active Notify Provider [RC] PRN Care 07/28/20 16:18 Active Peripheral IV Care [RC] . DIRECTED Care 07/28/20 16:19 Active Urinary Catheter Assessment [RC] ASDIRECTED Care 07/28/20 16:18 Active Vital Signs [RC] PER UNIT ROUTINE Care 07/28/20 13:15 Active Regular Diet [DIET] Diet 07/28/20 Dinner Active RAPID PLASMA REAGIN,RPR [CHEM] Routine Lab 07/28/20 16:30 Received Acetaminophen [TylenoL] Med 07/28/20 16:18 Active 650 mg PO Q4H PRN Lactated Ringers [Ringers, Lactated] 1,000 ml Med 07/28/20 16:30 Active IV ASDIRECTED Nalbuphine [Nubain] Med 07/28/20 16:18 Active 10 mg IVPUSH Q2H PRN Oxytocin/Lactated Ringers [Pitocin in LR 10 Units/1,000 Med 07/28/20 16:30 Active ML] 10 unit in 1,000 ml IV .CONTINUOUS Oxytocin/Lactated Ringers [Pitocin in LR 10 Units/1,000 Med 07/28/20 16:30 Active ML] 10 unit in 1,000 ml IV TITRATE Sodium Chloride 0.9% [Saline Flush] Med 07/28/20 16:18 Active 10 ml FLUSH ASDIRECTED PRN Electronic Heart Tones Ext w TOCO [WOMSER] Oth 07/28/20 16:18 Ordered Routine Electronic Heart Tones Internal [WOMSER] Per Unit Oth 07/28/20 16:18 Ordered Routine Peripheral IV Insertion Adult [OM.PC] Routine Oth 07/28/20 16:18 Ordered Resuscitation Status Routine Resus Stat 07/28/20 13:15 Ordered Medication Orders Acetaminophen (Tylenol) 650 mg PO Q4H PRN PRN Reason: Pain (Mild 1-3) and fever Lactated Ringer's (Ringers, Lactated) 1,000 mls @ 100 mls/hr IV ASDIRECTED SHIRLENE Last Admin: 07/28/20 16:30 Dose: 100 mls/hr Documented by: KAZ Oxytocin/Lactated Ringer's (Pitocin In Lr 10 Units/1,000 Ml) 10 unit in 1,000 mls @ 12 mls/hr IV TITRATE SHIRLENE; Protocol Oxytocin/Lactated Ringer's (Pitocin In Lr 10 Units/1,000 Ml) 10 unit in 1,000 mls @ 100 mls/hr IV .CONTINUOUS SHIRLENE; Protocol Nalbuphine HCl (Nubain) 10 mg IVPUSH Q2H PRN PRN Reason: Pain Sodium Chloride (Saline Flush) 10 ml FLUSH ASDIRECTED PRN PRN Reason: Keep Vein Open <TyroneelizabethJustin Long - Last Filed: 07/28/20 18:22> L&D History of Present Illness - General Admit Problem/Dx: Patient Status Order with Admit Dx/Problem 07/28/20 13:15 Patient Status [ADT] Routine 07/28/20 16:18 Patient Status [ADT] Routine Admission Diagnosis/Problem Admission Diagnosis/Problem L&D Exam - Vital Signs Vital Signs: Last Vital Signs Temp 99 F 07/28/20 13:15 Pulse 78 07/28/20 13:15 Resp 15 07/28/20 13:15 BP 109/66 07/28/20 13:15 Pulse Ox 100 07/28/20 13:15 - Patient Data Lab Results Last 24 hrs: Laboratory Results - last 24 hr 07/28/20 Range/Units 16:30 WBC 9.92 (3.98-10.04) K/mm3 RBC 4.08 (3.98-5.22) M/mm3 Hgb 11.3 (11.2-15.7) gm/dl Hct 35.2 (34.1-44.9) % MCV 86.3 D (79.4-94.8) fl MCH 27.7 (25.6-32.2) pg MCHC 32.1 L (32.2-35.5) g/dl RDW Std Deviation 41.8 (36.4-46.3) fL Plt Count 238 (182-369) K/mm3 MPV 9.8 (9.4-12.3) fl Neut % (Auto) 76.2 H (34.0-71.1) % Lymph % (Auto) 15.8 L (19.3-51.7) % Scurry % (Auto) 6.5 (4.7-12.5) % Eos % (Auto) 1.0 (0.7-5.8) Baso % (Auto) 0.3 (0.1-1.2) % Neut # (Auto) 7.56 H (1.56-6.13) K/mm3 Lymph # (Auto) 1.57 (1.18-3.74) K/mm3 [place]urry # (Auto) 0.64 H (0.24-0.36) K/mm3 Eos # (Auto) 0.10 (0.04-0.36) K/mm3 Baso # (Auto) 0.03 (0.01-0.08) K/mm3 Result Diagrams: 07/28/20 16:30 - Problem List (1) 39 weeks gestation of SNOMED Code(s): 90741825 ICD Code: Z3A.39 - 39 WEEKS GESTATION OF Status: Acute Current Visit: No Problem List Initiated/Reviewed/Updated: No Orders Last 24hrs: Active Orders 24 hr Category Date Time Status Patient Status [ADT] Routine ADT 07/28/20 16:18 Active Activity as Tolerated [RC] PFP Care 07/28/20 16:18 Active Communication Order [RC] ASDIRECTED Care 07/28/20 16:18 Active Heart Tones [RC] ASDIRECTED Care 07/28/20 16:19 Active Notify Provider [RC] ASDIRECTED Care 07/28/20 17:19 Active Notify Provider [RC] PFP Care 07/28/20 16:18 Active Notify Provider [RC] PRN Care 07/28/20 16:18 Active Peripheral IV Care [RC] . DIRECTED Care 07/28/20 16:19 Active Urinary Catheter Assessment [RC] ASDIRECTED Care 07/28/20 16:18 Active Vital Signs [RC] PER UNIT ROUTINE Care 07/28/20 13:15 Active Regular Diet [DIET] Diet 07/28/20 Dinner Active CORONAVIRUS COVID-19 RAPID [MOLEC] Stat Lab 07/28/20 18:00 Received RAPID PLASMA REAGIN,RPR [CHEM] Routine Lab 07/28/20 16:30 Received Acetaminophen [TylenoL] Med 07/28/20 16:18 Active 650 mg PO Q4H PRN Bupivacaine/fentaNYL/NS [fentaNYL/Bupivacaine/NS 2 MCG- Med 07/28/20 17:19 Active 0.125% 100 ML] 100 ml EPIDUR ASDIRECTED PRN Lactated Ringers [Ringers, Lactated] 1,000 ml Med 07/28/20 16:30 Active IV ASDIRECTED Nalbuphine [Nubain] Med 07/28/20 16:18 Active 10 mg IVPUSH Q2H PRN Oxytocin/Lactated Ringers [Pitocin in LR 10 Units/1,000 Med 07/28/20 16:30 Active ML] 10 unit in 1,000 ml IV .CONTINUOUS Oxytocin/Lactated Ringers [Pitocin in LR 10 Units/1,000 Med 07/28/20 16:30 Active ML] 10 unit in 1,000 ml IV TITRATE Sodium Chloride 0.9% [Saline Flush] Med 07/28/20 16:18 Active 10 ml FLUSH ASDIRECTED PRN diphenhydrAMINE [Benadryl] Med 07/28/20 17:19 Active 25 mg IVPUSH Q6H PRN ePHEDrine [ePHEDrine sulfate] Med 07/28/20 17:19 Active 5 mg IVPUSH ASDIRECTED PRN fentaNYL [Sublimaze] Med 07/28/20 17:19 Active 100 mcg EPIDUR Q3H PRN Electronic Heart Tones Ext w TOCO [WOMSER] Oth 07/28/20 16:18 Ordered Routine Electronic Heart Tones Internal [WOMSER] Per Unit Oth 07/28/20 16:18 Ordered Routine Peripheral IV Insertion Adult [OM.PC] Routine Oth 07/28/20 16:18 Ordered Resuscitation Status Routine Resus Stat 07/28/20 13:15 Ordered Medication Orders Acetaminophen (Tylenol) 650 mg PO Q4H PRN PRN Reason: Pain (Mild 1-3) and fever Diphenhydramine HCl (Benadryl) 25 mg IVPUSH Q6H PRN PRN Reason: pruritis Ephedrine Sulfate (Ephedrine Sulfate) 5 mg IVPUSH ASDIRECTED PRN PRN Reason: Hypotension Fentanyl (Sublimaze) 100 mcg EPIDUR Q3H PRN PRN Reason: Pain Last Admin: 07/28/20 17:44 Dose: 100 mcg Documented by: KAZ Fentanyl/Bupivacaine HCl (Fentanyl/Bupivacaine/Ns 2 Mcg-0.125% 100 Ml) 100 ml EPIDUR ASDIRECTED PRN PRN Reason: Pain Last Admin: 07/28/20 17:44 Dose: 100 ml Documented by: KAZ Lactated Ringer's (Ringers, Lactated) 1,000 mls @ 100 mls/hr IV ASDIRECTED SHIRLENE Last Admin: 07/28/20 18:03 Dose: 100 mls/hr Documented by: Infusion: 07/28/20 18:03 Dose: 100 mls/hr Documented by: [id number] Admin: 07/28/20 17:25 Dose: 100 mls/hr Documented by: [email or web address] Infusion: 07/28/20 17:25 Dose: 100 mls/hr Documented by: [id number] Admin: 07/28/20 16:30 Dose: 100 mls/hr Documented by: [id number] Oxytocin/Lactated Ringer's (Pitocin In Lr 10 Units/1,000 Ml) 10 unit in 1,000 mls @ 12 mls/hr IV TITRATE SHIRLENE; Protocol Oxytocin/Lactated Ringer's (Pitocin In Lr 10 Units/1,000 Ml) 10 unit in 1,000 mls @ 100 mls/hr IV .CONTINUOUS SHIRLENE; Protocol Nalbuphine HCl (Nubain) 10 mg IVPUSH Q2H PRN PRN Reason: Pain Sodium Chloride (Saline Flush) 10 ml FLUSH ASDIRECTED PRN PRN Reason: Keep Vein Open Assessment/Plan Comment:: Patient seen and examined by me and discussed with student. Plan delivery
[2020-07-28] MEDS ORDERED: ePHEDrine 50 MG/ML SDV IVPUSH PRN (17:19)
[2020-07-28] MEDS ORDERED: diphenhydrAMINE 50 MG/ML SDV IVPUSH PRN (17:19)
[2020-07-28] MEDS ORDERED: fentaNYL 100 MCG/2 ML SDV EPIDUR PRN (17:19)
[2020-07-28] MEDS ORDERED: Bupivacaine/fentaNYL/NS 100 ML Bag EPIDUR PRN (17:19)
--- NOTE | 2020-07-28 17:50 | PCM.PREANE ---
Preanesthetic Assessment - Procedure Proposed Procedure: tc - Anesthesia/Transfusion/Family Hx Anesthesia History: Prior Anesthesia Without Reaction Family History of Anesthesia Reaction: No Transfusion History: No Prior Transfusion(s) Intubation History: Unknown - Review of Systems General: No Symptoms Pulmonary: No Symptoms Cardiovascular: No Symptoms Gastrointestinal: No Symptoms Neurological: No Symptoms Other: Reports: None - Physical Assessment Vital Signs: Last Vital Signs Temp 99 F 07/28/20 13:15 Pulse 78 07/28/20 13:15 Resp 15 07/28/20 13:15 BP 109/66 07/28/20 13:15 Pulse Ox 100 07/28/20 13:15 Height: 5 ft 8 in Weight: 69.4 kg ASA Class: 2 Mental Status: Alert & Oriented x3 Airway Class: Mallampati = 1 Dentition: Reports: Normal Dentition Thyro-Mental Finger Breadths: 3 Mouth Opening Finger Breadths: 3 ROM/Head Extension: Full Lungs: Clear to Auscultation, Normal Respiratory Effort Cardiovascular: Regular Rate, Regular Rhythm - Lab Values: Laboratory Last Values WBC 9.92 K/mm3 (3.98-10.04) 07/28/20 16:30 RBC 4.08 M/mm3 (3.98-5.22) 07/28/20 16:30 Hgb 11.3 gm/dl (11.2-15.7) 07/28/20 16:30 Hct 35.2 % (34.1-44.9) 07/28/20 16:30 MCV 86.3 fl (79.4-94.8) D 07/28/20 16:30 MCH 27.7 pg (25.6-32.2) 07/28/20 16:30 MCHC 32.1 g/dl (32.2-35.5) L 07/28/20 16:30 RDW Std Deviation 41.8 fL (36.4-46.3) 07/28/20 16:30 Plt Count 238 K/mm3 (182-369) 07/28/20 16:30 MPV 9.8 fl (9.4-12.3) 07/28/20 16:30 Neut % (Auto) 76.2 % (34.0-71.1) H 07/28/20 16:30 Lymph % (Auto) 15.8 % (19.3-51.7) L 07/28/20 16:30 [place] % (Auto) 6.5 % (4.7-12.5) 07/28/20 16:30 Eos % (Auto) 1.0 (0.7-5.8) 07/28/20 16:30 Baso % (Auto) 0.3 % (0.1-1.2) 07/28/20 16:30 Neut # (Auto) 7.56 K/mm3 (1.56-6.13) H 07/28/20 16:30 Lymph # (Auto) 1.57 K/mm3 (1.18-3.74) 07/28/20 16:30 [place] # (Auto) 0.64 K/mm3 (0.24-0.36) H 07/28/20 16:30 Eos # (Auto) 0.10 K/mm3 (0.04-0.36) 07/28/20 16:30 Baso # (Auto) 0.03 K/mm3 (0.01-0.08) 07/28/20 16:30 - Allergies Allergies/Adverse Reactions: Allergies Allergy/AdvReac Type Severity Reaction Status Date / Time amoxicillin trihydrate Allergy Hives Verified 07/28/20 16:31 [From Augmentin] potassium clavulanate Allergy Hives Verified 07/28/20 16:31 [From Augmentin] - Blood Blood Available: No - Acknowledgements Anesthesia Type Planned: Epidural Pt an Appropriate Candidate for the Planned Anesthesia: Yes Alternatives and Risks of Anesthesia Discussed w Pt/Guardian: Yes Pt/Guardian Understands and Agrees with Anesthesia Plan: Yes PreAnesthesia Questionnaire - Past Health History 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 History: Denies 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 History Cardiovascular History: Reports: None Respiratory History: Reports: None, Other (See Below) (seasonal allergeis) Gastrointestinal History: Reports: GERD (with preg) Genitourinary History: Reports: Renal Calculus 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 Genitourinary History: 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 Para: 3 Endocrine/Metabolic History: Reports: None Oncologic (Cancer) History: Reports: None - Past Surgical History HEENT Surgical History: Reports: Other (See Below) Other HEENT Surgeries/Procedures: [place] teeth 2004 - SUBSTANCE USE Smoking Status *Q: Never Smoker Tobacco Use Within Last Twelve Months: No Second Hand Smoke Exposure: No Days Per Week of Alcohol Use: 0 Recreational Drug Use History: No - HOME MEDS Home Medications: Home Meds Pnv No.95/Ferrous Fum/Folic AC [ Tablet] 1 tab PO DAILY 07/18/17 [History] Fexofenadine HCl [Lisa Allergy] 60 mg PO DAILY PRN 07/28/20 [History] - CURRENT (IN HOUSE) MEDS Current Meds: Current Medications Acetaminophen (Tylenol) 650 mg PO Q4H PRN PRN Reason: Pain (Mild 1-3) and fever Diphenhydramine HCl (Benadryl) 25 mg IVPUSH Q6H PRN PRN Reason: pruritis Ephedrine Sulfate (Ephedrine Sulfate) 5 mg IVPUSH ASDIRECTED PRN PRN Reason: Hypotension Fentanyl (Sublimaze) 100 mcg EPIDUR Q3H PRN PRN Reason: Pain Last Admin: 07/28/20 17:44 Dose: 100 mcg Documented by: Fentanyl/Bupivacaine HCl (Fentanyl/Bupivacaine/Ns 2 Mcg-0.125% 100 Ml) 100 ml EPIDUR ASDIRECTED PRN PRN Reason: Pain Last Admin: 07/28/20 17:44 Dose: 100 ml Documented by: Lactated Ringer's (Ringers, Lactated) 1,000 mls @ 100 mls/hr IV ASDIRECTED SHIRLENE Last Admin: 07/28/20 17:25 Dose: 100 mls/hr Documented by: Oxytocin/Lactated Ringer's (Pitocin In Lr 10 Units/1,000 Ml) 10 unit in 1,000 mls @ 12 mls/hr IV TITRATE SHIRLENE; Protocol Oxytocin/Lactated Ringer's (Pitocin In Lr 10 Units/1,000 Ml) 10 unit in 1,000 mls @ 100 mls/hr IV .CONTINUOUS SHIRLENE; Protocol Nalbuphine HCl (Nubain) 10 mg IVPUSH Q2H PRN PRN Reason: Pain Sodium Chloride (Saline Flush) 10 ml FLUSH ASDIRECTED PRN PRN Reason: Keep Vein Open
--- NOTE | 2020-07-28 19:50 | PCM.DEL ---
L & D Note - General Info Date of Service: 07/28/20 Mother's Due Date: 07/30/20 - Delivery Note Labor: Spontaneous, Augmented by ARM Delivery Outcome: Livebirth (Male liveborn 07/28/2020 at 1929 hrs. 3820 g / 8 pounds 6.7 ounces Apgars 8/9 no nuchal cord) Infant Delivery Method: Spontaneous Vaginal Delivery-Single Delivery Mode: Spontaneous Presentation: Left Occiput Anterior (CORBY) Nuchal Cord: None Prep: Povidone-Iodine (Betadine Anesthesia Type: Epidural Episiotomy Type: None Laceration: 1st Degree (Superficial not bleeding not sutured less than 1 cm in length) Placenta: Intact, Spontaneous (07/28/2020 at 1932 hrs. examined intact troy, [place]) Cord: 3 Vessels Estimated Blood Loss: 250 Resuscitation Needed: No : Suctioned, Bulb Syringe, Stimulated, Warmed, Finley Used, Warmer Used Provider: Justin Bradford Score 1 min: 8 Score 5 min: 9 - General Info Date of Service: 07/28/20 Functional Status: Reports: Pain Controlled - Review of Systems General: Reports: No Symptoms HEENT: Reports: No Symptoms Pulmonary: Reports: No Symptoms Cardiovascular: Reports: No Symptoms Gastrointestinal: Reports: No Symptoms Genitourinary: Reports: No Symptoms Musculoskeletal: Reports: No Symptoms Skin: Reports: No Symptoms Neurological: Reports: No Symptoms Psychiatric: Reports: No Symptoms - Patient Data Vitals - Most Recent: Last Vital Signs Temp 99 F 07/28/20 13:15 Pulse 78 07/28/20 13:15 Resp 15 07/28/20 13:15 BP 109/66 07/28/20 13:15 Pulse Ox 100 07/28/20 13:15 Weight - Most Recent: 153 lb I&O - Last 24 Hours: Intake & Output 07/28/20 07/28/20 07/28/20 06:59 14:59 22:59 Intake Total 1999 Balance 1999 Lab Results Last 24 Hours: Laboratory Results - last 24 hr 07/28/20 07/28/20 Range/Units 16:30 18:00 WBC 9.92 (3.98-10.04) K/mm3 RBC 4.08 (3.98-5.22) M/mm3 Hgb 11.3 (11.2-15.7) gm/dl Hct 35.2 (34.1-44.9) % MCV 86.3 D (79.4-94.8) fl MCH 27.7 (25.6-32.2) pg MCHC 32.1 L (32.2-35.5) g/dl RDW Std Deviation 41.8 (36.4-46.3) fL Plt Count 238 (182-369) K/mm3 MPV 9.8 (9.4-12.3) fl Neut % (Auto) 76.2 H (34.0-71.1) % Lymph % (Auto) 15.8 L (19.3-51.7) % [place] % (Auto) 6.5 (4.7-12.5) % Eos % (Auto) 1.0 (0.7-5.8) Baso % (Auto) 0.3 (0.1-1.2) % Neut # (Auto) 7.56 H (1.56-6.13) K/mm3 Lymph # (Auto) 1.57 (1.18-3.74) K/mm3 [place] # (Auto) 0.64 H (0.24-0.36) K/mm3 Eos # (Auto) 0.10 (0.04-0.36) K/mm3 Baso # (Auto) 0.03 (0.01-0.08) K/mm3 COVID-19 (SUZY) Negative (NEGATIVE) Med Orders - Current: Current Medications Acetaminophen (Tylenol) 650 mg PO Q4H PRN PRN Reason: Pain (Mild 1-3) and fever Diphenhydramine HCl (Benadryl) 25 mg IVPUSH Q6H PRN PRN Reason: pruritis Ephedrine Sulfate (Ephedrine Sulfate) 5 mg IVPUSH ASDIRECTED PRN PRN Reason: Hypotension Fentanyl (Sublimaze) 100 mcg EPIDUR Q3H PRN PRN Reason: Pain Last Admin: 07/28/20 17:44 Dose: 100 mcg Documented by: Fentanyl/Bupivacaine HCl (Fentanyl/Bupivacaine/Ns 2 Mcg-0.125% 100 Ml) 100 ml EPIDUR ASDIRECTED PRN PRN Reason: Pain Last Admin: 07/28/20 17:44 Dose: 100 ml Documented by: Lactated Ringer's (Ringers, Lactated) 1,000 mls @ 100 mls/hr IV ASDIRECTED SHIRLENE Last Admin: 07/28/20 18:03 Dose: 100 mls/hr Documented by: Oxytocin/Lactated Ringer's (Pitocin In Lr 10 Units/1,000 Ml) 10 unit in 1,000 mls @ 12 mls/hr IV TITRATE SHIRLENE; Protocol Last Admin: 07/28/20 18:36 Dose: 2 munits/min, 12 mls/hr Documented by: Oxytocin/Lactated Ringer's (Pitocin In Lr 10 Units/1,000 Ml) 10 unit in 1,000 mls @ 100 mls/hr IV .CONTINUOUS SHIRLENE; Protocol Nalbuphine HCl (Nubain) 10 mg IVPUSH Q2H PRN PRN Reason: Pain Sodium Chloride (Saline Flush) 10 ml FLUSH ASDIRECTED PRN PRN Reason: Keep Vein Open - Exam General: Alert, Oriented HEENT: Pupils Equal, Mucous Membr. Moist/[place] Neck: Supple, Trachea Midline Lungs: Clear to Auscultation, Normal Respiratory Effort Cardiovascular: Regular Rate, Regular Rhythm GI/Abdominal Exam: Normal Bowel Sounds, Soft, Non-Tender Extremities: Normal Inspection, Non-Tender, No Pedal Edema, Normal Capillary Refill Skin: Warm, Dry, Intact Psy/Mental Status: Alert, Normal Affect, Normal Mood - Problem List & Annotations (1) 39 weeks gestation of SNOMED Code(s): 27688032 Code(s): Z3A.39 - 39 WEEKS GESTATION OF Status: Acute Current Visit: No (2) First degree laceration of perineum, delivered, current hospitalization SNOMED Code(s): 701083698, 386760393 Code(s): O70.0 - FIRST DEGREE PERINEAL LACERATION DURING DELIVERY Status: Acute Current Visit: Yes (3) Delivery normal SNOMED Code(s): 24531949, 789186146 Code(s): O80 - ENCOUNTER FOR FULL-TERM UNCOMPLICATED DELIVERY Status: Acute Current Visit: Yes - Problem List Review Problem List Initiated/Reviewed/Updated: No - My Orders Last 24 Hours: My Active Orders 07/28/20 13:15 Vital Signs [RC] PER UNIT ROUTINE Resuscitation Status Routine 07/28/20 16:18 Patient Status [ADT] Routine Activity as Tolerated [RC] PFP Communication Order [RC] ASDIRECTED Notify Provider [RC] PFP Notify Provider [RC] PRN Urinary Catheter Assessment [RC] ASDIRECTED Acetaminophen [TylenoL] 650 mg PO Q4H PRN Nalbuphine [Nubain] 10 mg IVPUSH Q2H PRN Sodium Chloride 0.9% [Saline Flush] 10 ml FLUSH ASDIRECTED PRN Electronic Heart Tones Ext w TOCO [WOMSER] Routine Electronic Heart Tones Internal [WOMSER] Per Unit Routine Peripheral IV Insertion Adult [OM.PC] Routine 07/28/20 16:19 Heart Tones [RC] ASDIRECTED Peripheral IV Care [RC] . DIRECTED 07/28/20 16:30 RAPID PLASMA REAGIN,RPR [CHEM] Routine Lactated Ringers [Ringers, Lactated] 1,000 ml IV ASDIRECTED Oxytocin/Lactated Ringers [Pitocin in LR 10 Units/1,000 ML] 10 unit in 1,000 ml IV .CONTINUOUS Oxytocin/Lactated Ringers [Pitocin in LR 10 Units/1,000 ML] 10 unit in 1,000 ml IV TITRATE 07/28/20 Dinner Regular Diet [DIET] - Plan Plan:: Patient seen and examined by me and discussed with student. Plan delivery
[2020-07-28] MEDS ORDERED: Docusate Sodium 100 MG Cap PO PRN (20:17)
[2020-07-28] MEDS ORDERED: Loratadine 10 MG Tab PO PRN (20:22)
[2020-07-28] MEDS ORDERED: Benzocaine/Menthol 20%-0.5% Spray 56 GM Canister TOP PRN (20:47)
[2020-07-28] MEDS ORDERED: Witch Hazel Medicated Pads 40/Jar TOP PRN (20:47)
[2020-07-28] MEDS: Ibuprofen 600 MG Tab PO PRN (21:07)
--- NOTE | 2020-07-29 08:06 | PCM48HPAN ---
Post Anesthesia Note - EVALUATION WITHIN 48HRS OF ANESTHETIC Vital Signs in Normal Range: Yes Patient Participated in Evaluation: Yes Respiratory Function Stable: Yes Airway Patent: Yes Cardiovascular Function Stable: Yes Hydration Status Stable: Yes Pain Control Satisfactory: Yes Nausea and Vomiting Control Satisfactory: Yes Mental Status Recovered: Yes Vital Signs: Last Vital Signs Temp 36.7 C 07/29/20 04:30 Pulse 62 07/29/20 04:30 Resp 14 07/29/20 04:30 BP 106/69 07/29/20 04:30 Pulse Ox 100 07/28/20 13:15
[2020-07-29] MEDS ORDERED: Prenatal Multivitamin with Calcium/Folic Acid/Iron Tab PO SCH (09:00)
--- NOTE | 2020-07-29 10:46 | PCM.DCSUM1 ---
Discharge Summary - Hospital Course Free Text/Narrative:: [place] [facility] L/D Delivery Note Patient Name: FELECIA MARI Date of : 89 Patient Status: Inpatient Attending Provider: Justin Bradford Date: 07/28/20 19:44 Initialization Date: 07/28/20 19:44 L & D Note - General Info Date of Service: 07/28/20 Mother's Due Date: 07/30/20 - Delivery Note Labor: Spontaneous, Augmented by ARM Delivery Outcome: Livebirth (Male liveborn 07/28/2020 at 1929 hrs. 3820 g / 8 pounds 6.7 ounces Apgars 8/9 no nuchal cord) Delivery Method: Spontaneous Vaginal Delivery-Single Infant Delivery Mode: Spontaneous Presentation: Left Occiput Anterior (CORBY) Nuchal Cord: None Prep: Povidone-Iodine (Betadine Anesthesia Type: Epidural Episiotomy Type: None Laceration: 1st Degree (Superficial not bleeding not sutured less than 1 cm in length) Placenta: Intact, Spontaneous (07/28/2020 at 1932 hrs. examined intact Cameron simmons) Cord: 3 Vessels Estimated Blood Loss: 250 Resuscitation Needed: No : Suctioned, Bulb Syringe, Stimulated, Warmed, [place] Used, Warmer Used Provider: Justin Bradford Score 1 min: 8 Score 5 min: 9 - General Info Date of Service: 07/28/20 Functional Status: Reports: Pain Controlled - Review of Systems General: Reports: No Symptoms HEENT: Reports: No Symptoms Pulmonary: Reports: No Symptoms Cardiovascular: Reports: No Symptoms Gastrointestinal: Reports: No Symptoms Genitourinary: Reports: No Symptoms Musculoskeletal: Reports: No Symptoms Skin: Reports: No Symptoms Neurological: Reports: No Symptoms Psychiatric: Reports: No Symptoms - Patient Data Vitals - Most Recent: Last Vital Signs Temp 99 F 07/28/20 13:15 Pulse 78 07/28/20 13:15 Resp 15 07/28/20 13:15 BP 109/66 07/28/20 13:15 Pulse Ox 100 07/28/20 13:15 Weight - Most Recent: 153 lb I&O - Last 24 Hours: Intake & Output 07/28/20 07/28/20 07/28/20 06:59 14:59 22:59 Intake Total 1999 Balance 1999 Lab Results Last 24 Hours: Laboratory Results - last 24 hr 07/28/20 07/28/20 Range/Units 16:30 18:00 WBC 9.92 (3.98-10.04) K/mm3 RBC 4.08 (3.98-5.22) M/mm3 Hgb 11.3 (11.2-15.7) gm/dl Hct 35.2 (34.1-44.9) % MCV 86.3 D (79.4-94.8) fl MCH 27.7 (25.6-32.2) pg MCHC 32.1 L (32.2-35.5) g/dl RDW Std Deviation 41.8 (36.4-46.3) fL Plt Count 238 (182-369) K/mm3 MPV 9.8 (9.4-12.3) fl Neut % (Auto) 76.2 H (34.0-71.1) % Lymph % (Auto) 15.8 L (19.3-51.7) % Storey % (Auto) 6.5 (4.7-12.5) % Eos % (Auto) 1.0 (0.7-5.8) Baso % (Auto) 0.3 (0.1-1.2) % Neut # (Auto) 7.56 H (1.56-6.13) K/mm3 Lymph # (Auto) 1.57 (1.18-3.74) K/mm3 Storey # (Auto) 0.64 H (0.24-0.36) K/mm3 Eos # (Auto) 0.10 (0.04-0.36) K/mm3 Baso # (Auto) 0.03 (0.01-0.08) K/mm3 COVID-19 (SUZY) Negative (NEGATIVE) Med Orders - Current: Current Medications Acetaminophen (Tylenol) 650 mg PO Q4H PRN PRN Reason: Pain (Mild 1-3) and fever Diphenhydramine HCl (Benadryl) 25 mg IVPUSH Q6H PRN PRN Reason: pruritis Ephedrine Sulfate (Ephedrine Sulfate) 5 mg IVPUSH ASDIRECTED PRN PRN Reason: Hypotension Fentanyl (Sublimaze) 100 mcg EPIDUR Q3H PRN PRN Reason: Pain Last Admin: 07/28/20 17:44 Dose: 100 mcg Documented by: Fentanyl/Bupivacaine HCl (Fentanyl/Bupivacaine/Ns 2 Mcg-0.125% 100 Ml) 100 ml EPIDUR ASDIRECTED PRN PRN Reason: Pain Last Admin: 07/28/20 17:44 Dose: 100 ml Documented by: Lactated Ringer's (Ringers, Lactated) 1,000 mls @ 100 mls/hr IV ASDIRECTED SHIRLENE Last Admin: 07/28/20 18:03 Dose: 100 mls/hr Documented by: Oxytocin/Lactated Ringer's (Pitocin In Lr 10 Units/1,000 Ml) 10 unit in 1,000 mls @ 12 mls/hr IV TITRATE SHIRLENE; Protocol Last Admin: 07/28/20 18:36 Dose: 2 munits/min, 12 mls/hr Documented by: Oxytocin/Lactated Ringer's (Pitocin In Lr 10 Units/1,000 Ml) 10 unit in 1,000 mls @ 100 mls/hr IV .CONTINUOUS SHIRLENE; Protocol Nalbuphine HCl (Nubain) 10 mg IVPUSH Q2H PRN PRN Reason: Pain Sodium Chloride (Saline Flush) 10 ml FLUSH ASDIRECTED PRN PRN Reason: Keep Vein Open - Exam General: Alert, Oriented HEENT: Pupils Equal, Mucous Membr. Moist/[place] Neck: Supple, Trachea Midline Lungs: Clear to Auscultation, Normal Respiratory Effort Cardiovascular: Regular Rate, Regular Rhythm GI/Abdominal Exam: Normal Bowel Sounds, Soft, Non-Tender Extremities: Normal Inspection, Non-Tender, No Pedal Edema, Normal Capillary Refill Skin: Warm, Dry, Intact Psy/Mental Status: Alert, Normal Affect, Normal Mood - Problem List & Annotations (1) 39 weeks gestation of SNOMED Code(s): 41694654 Code(s): Z3A.39 - 39 WEEKS GESTATION OF Status: Acute Current Visit: No (2) First degree laceration of perineum, delivered, current hospitalization SNOMED Code(s): 585600084, 883440634 Code(s): O70.0 - FIRST DEGREE PERINEAL LACERATION DURING DELIVERY Status: Acute Current Visit: Yes (3) Delivery normal SNOMED Code(s): 65967514, 157971704 Code(s): O80 - ENCOUNTER FOR FULL-TERM UNCOMPLICATED DELIVERY Status: Acute Current Visit: Yes - Problem List Review Problem List Initiated/Reviewed/Updated: No - My Orders Last 24 Hours: My Active Orders 07/28/20 13:15 Vital Signs [RC] PER UNIT ROUTINE Resuscitation Status Routine 07/28/20 16:18 Patient Status [ADT] Routine Activity as Tolerated [RC] PFP Communication Order [RC] ASDIRECTED Notify Provider [RC] PFP Notify Provider [RC] PRN Urinary Catheter Assessment [RC] ASDIRECTED Acetaminophen [TylenoL] 650 mg PO Q4H PRN Nalbuphine [Nubain] 10 mg IVPUSH Q2H PRN Sodium Chloride 0.9% [Saline Flush] 10 ml FLUSH ASDIRECTED PRN Electronic Heart Tones Ext w TOCO [WOMSER] Routine Electronic Heart Tones Internal [WOMSER] Per Unit Routine Peripheral IV Insertion Adult [OM.PC] Routine 07/28/20 16:19 Heart Tones [RC] ASDIRECTED Peripheral IV Care [RC] . DIRECTED 07/28/20 16:30 RAPID PLASMA REAGIN,RPR [CHEM] Routine Lactated Ringers [Ringers, Lactated] 1,000 ml IV ASDIRECTED Oxytocin/Lactated Ringers [Pitocin in LR 10 Units/1,000 ML] 10 unit in 1,000 ml IV .CONTINUOUS Oxytocin/Lactated Ringers [Pitocin in LR 10 Units/1,000 ML] 10 unit in 1,000 ml IV TITRATE 07/28/20 Dinner Regular Diet [DIET] - Plan Plan:: Patient seen and examined by me and discussed with student. Plan delivery HPI Initial Comments: [place] [facility] L/D Delivery Note Patient Name: FELECIA MARI Date of : 89 Patient Status: Inpatient Attending Provider: Justin Bradford Date: 07/28/20 19:44 Initialization Date: 07/28/20 19:44 L & D Note - General Info Date of Service: 07/28/20 Mother's Due Date: 07/30/20 - Delivery Note Labor: Spontaneous, Augmented by ARM Delivery Outcome: Livebirth (Male liveborn 07/28/2020 at 1929 hrs. 3820 g / 8 pounds 6.7 ounces Apgars 8/9 no nuchal cord) Delivery Method: Spontaneous Vaginal Delivery-Single Infant Delivery Mode: Spontaneous Presentation: Left Occiput Anterior (CORBY) Nuchal Cord: None Prep: Povidone-Iodine (Betadine Anesthesia Type: Epidural Episiotomy Type: None Laceration: 1st Degree (Superficial not bleeding not sutured less than 1 cm in l ength) Placenta: Intact, Spontaneous (07/28/2020 at 1932 hrs. examined intact discarded, Cameron) Cord: 3 Vessels Estimated Blood Loss: 250 Resuscitation Needed: No : Suctioned, Bulb Syringe, Stimulated, Warmed, [place] Used, Warmer Used Provider: Justin Bradford Score 1 min: 8 Score 5 min: 9 - General Info Date of Service: 07/28/20 Functional Status: Reports: Pain Controlled - Review of Systems General: Reports: No Symptoms HEENT: Reports: No Symptoms Pulmonary: Reports: No Symptoms Cardiovascular: Reports: No Symptoms Gastrointestinal: Reports: No Symptoms Genitourinary: Reports: No Symptoms Musculoskeletal: Reports: No Symptoms Skin: Reports: No Symptoms Neurological: Reports: No Symptoms Psychiatric: Reports: No Symptoms - Patient Data Vitals - Most Recent: Last Vital Signs Temp 99 F 07/28/20 13:15 Pulse 78 07/28/20 13:15 Resp 15 07/28/20 13:15 BP 109/66 07/28/20 13:15 Pulse Ox 100 07/28/20 13:15 Weight - Most Recent: 153 lb I&O - Last 24 Hours: Intake & Output 07/28/20 07/28/20 07/28/20 06:59 14:59 22:59 Intake Total 1999 Balance 1999 Lab Results Last 24 Hours: Laboratory Results - last 24 hr 07/28/20 07/28/20 Range/Units 16:30 18:00 WBC 9.92 (3.98-10.04) K/mm3 RBC 4.08 (3.98-5.22) M/mm3 Hgb 11.3 (11.2-15.7) gm/dl Hct 35.2 (34.1-44.9) % MCV 86.3 D (79.4-94.8) fl MCH 27.7 (25.6-32.2) pg MCHC 32.1 L (32.2-35.5) g/dl RDW Std Deviation 41.8 (36.4-46.3) fL Plt Count 238 (182-369) K/mm3 MPV 9.8 (9.4-12.3) fl Neut % (Auto) 76.2 H (34.0-71.1) % Lymph % (Auto) 15.8 L (19.3-51.7) % [place]y % (Auto) 6.5 (4.7-12.5) % Eos % (Auto) 1.0 (0.7-5.8) Baso % (Auto) 0.3 (0.1-1.2) % Neut # (Auto) 7.56 H (1.56-6.13) K/mm3 Lymph # (Auto) 1.57 (1.18-3.74) K/mm3 [place]y # (Auto) 0.64 H (0.24-0.36) K/mm3 Eos # (Auto) 0.10 (0.04-0.36) K/mm3 Baso # (Auto) 0.03 (0.01-0.08) K/mm3 COVID-19 (SUZY) Negative (NEGATIVE) Med Orders - Current: Current Medications Acetaminophen (Tylenol) 650 mg PO Q4H PRN PRN Reason: Pain (Mild 1-3) and fever Diphenhydramine HCl (Benadryl) 25 mg IVPUSH Q6H PRN PRN Reason: pruritis Ephedrine Sulfate (Ephedrine Sulfate) 5 mg IVPUSH ASDIRECTED PRN PRN Reason: Hypotension Fentanyl (Sublimaze) 100 mcg EPIDUR Q3H PRN PRN Reason: Pain Last Admin: 07/28/20 17:44 Dose: 100 mcg Documented by: Fentanyl/Bupivacaine HCl (Fentanyl/Bupivacaine/Ns 2 Mcg-0.125% 100 Ml) 100 ml EPIDUR ASDIRECTED PRN PRN Reason: Pain Last Admin: 07/28/20 17:44 Dose: 100 ml Documented by: Lactated Ringer's (Ringers, Lactated) 1,000 mls @ 100 mls/hr IV ASDIRECTED SHIRLENE Last Admin: 07/28/20 18:03 Dose: 100 mls/hr Documented by: Oxytocin/Lactated Ringer's (Pitocin In Lr 10 Units/1,000 Ml) 10 unit in 1,000 mls @ 12 mls/hr IV TITRATE SHIRLENE; Protocol Last Admin: 07/28/20 18:36 Dose: 2 munits/min, 12 mls/hr Documented by: Oxytocin/Lactated Ringer's (Pitocin In Lr 10 Units/1,000 Ml) 10 unit in 1,000 mls @ 100 mls/hr IV .CONTINUOUS SHIRLENE; Protocol Nalbuphine HCl (Nubain) 10 mg IVPUSH Q2H PRN PRN Reason: Pain Sodium Chloride (Saline Flush) 10 ml FLUSH ASDIRECTED PRN PRN Reason: Keep Vein Open - Exam General: Alert, Oriented HEENT: Pupils Equal, Mucous Membr. Moist/[place] Neck: Supple, Trachea Midline Lungs: Clear to Auscultation, Normal Respiratory Effort Cardiovascular: Regular Rate, Regular Rhythm GI/Abdominal Exam: Normal Bowel Sounds, Soft, Non-Tender Extremities: Normal Inspection, Non-Tender, No Pedal Edema, Normal Capillary Refill Skin: Warm, Dry, Intact Psy/Mental Status: Alert, Normal Affect, Normal Mood - Problem List & Annotations (1) 39 weeks gestation of SNOMED Code(s): 06845325 Code(s): Z3A.39 - 39 WEEKS GESTATION OF Status: Acute Current Visit: No (2) First degree laceration of perineum, delivered, current hospitalization SNOMED Code(s): 522396435, 826981426 Code(s): O70.0 - FIRST DEGREE PERINEAL LACERATION DURING DELIVERY Status: Acute Current Visit: Yes (3) Delivery normal SNOMED Code(s): 53453789, 906206341 Code(s): O80 - ENCOUNTER FOR FULL-TERM UNCOMPLICATED DELIVERY Status: Acute Current Visit: Yes - Problem List Review Problem List Initiated/Reviewed/Updated: No - My Orders Last 24 Hours: My Active Orders 07/28/20 13:15 Vital Signs [RC] PER UNIT ROUTINE Resuscitation Status Routine 07/28/20 16:18 Patient Status [ADT] Routine Activity as Tolerated [RC] PFP Communication Order [RC] ASDIRECTED Notify Provider [RC] PFP Notify Provider [RC] PRN Urinary Catheter Assessment [RC] ASDIRECTED Acetaminophen [TylenoL] 650 mg PO Q4H PRN Nalbuphine [Nubain] 10 mg IVPUSH Q2H PRN Sodium Chloride 0.9% [Saline Flush] 10 ml FLUSH ASDIRECTED PRN Electronic Heart Tones Ext w TOCO [WOMSER] Routine Electronic Heart Tones Internal [WOMSER] Per Unit Routine Peripheral IV Insertion Adult [OM.PC] Routine 07/28/20 16:19 Heart Tones [RC] ASDIRECTED Peripheral IV Care [RC] . DIRECTED 07/28/20 16:30 RAPID PLASMA REAGIN,RPR [CHEM] Routine Lactated Ringers [Ringers, Lactated] 1,000 ml IV ASDIRECTED Oxytocin/Lactated Ringers [Pitocin in LR 10 Units/1,000 ML] 10 unit in 1,000 ml IV .CONTINUOUS Oxytocin/Lactated Ringers [Pitocin in LR 10 Units/1,000 ML] 10 unit in 1,000 ml IV TITRATE 07/28/20 Dinner Regular Diet [DIET] - Plan Plan:: Patient seen and examined by me and discussed with student. Plan delivery Brief History: [facility] . L/D Delivery Note. [facility]: [id number]. Date of : 89Patient Status: Inpatient. Attending Provider: Justin Bradford Number: [id number]. Date: 07/28/20 19:44Initialization Date: 07/28/20 19:44. L & D Note. - General Info. Date of Service: 07/28/20. Mother's Due Date: 07/30/20. - Delivery Note. Labor: Spontaneous, Augmented by ARM. Delivery Outcome: Livebirth (Male liveborn 07/28/2020 at 1929 hrs. 3820 g / 8 pounds 6.7 ounces Apgars 8/9 no nuchal cord). Delivery Method: Spontaneous Vaginal Delivery-Single. Delivery Mode: Spontaneous. Presentation: Left Occiput Anterior (CORBY). Nuchal Cord: None. Prep: Povidone- Iodine (Betadine. Anesthesia Type: Epidural. Episiotomy Type: None. Laceration: 1st Degree (Superficial not bleeding not sutured less than 1 cm in length). Placenta: Intact, Spontaneous (07/28/2020 at 1932 hrs. examined intact discarded, Cameron). Cord: 3 Vessels. Estimated Blood Loss: 250. Resuscitation Needed: No. Hoven: Suctioned, Bulb Syringe, Stimulated, Warmed, [place] Used, Warmer Used. Provider: Justin Bradford. Score 1 min: 8. Score 5 min: 9. - General Info. Date of Service: 07/28/20. Functional Status: Reports: Pain Controlled. - Review of Systems. General: Reports: No Symptoms. HEENT: Reports: No Symptoms. Pulmonary: Reports: No Symptoms. Cardiovascular: Reports: No Symptoms. Gastrointestinal: Reports: No Symptoms. Genitourinary: Reports: No Symptoms. Musculoskeletal: Reports: No Symptoms. Skin: Reports: No Symptoms. Neurological: Reports: No Symptoms. Psychiatric: Reports: No Symptoms. - Patient Data. Vitals - Most Recent: Last Vital Signs. Temp 99 F 07/28/20 13:15. Pulse 78 07/28/20 13:15. Resp 15 07/28/20 13:15. BP 109/66 07/28/20 13:15. Pulse Ox 100 07/28/20 13:15. Weight - Most Recent: 153 lb. I&O - Last 24 Hours: Intake & Output. 07/28/2008/. 06:5914:5922:59. Intake [id number]. [id number]. Lab Results Last 24 Hours: Laboratory Results - last 24 hr. 07/28/2008Range/Units. 16:3018:00. WBC 9.92 (3.98-10.04) K/mm3. RBC 4.08 (3.98-5.22) M/mm3. Hgb 11.3 (11.2-15.7) gm/dl. Hct 35.2 (34.1-44.9) %. MCV 86.3 D (79.4-94.8) fl. MCH 27.7 (25.6-32.2) pg. MCHC 32.1 L (32.2- 35.5) g/dl. RDW Std Deviation 41.8 (36.4-46.3) fL. Plt Count 238 (182-369) K/mm3. MPV 9.8 (9.4-12.3) fl. Neut % (Auto) 76.2 H (34.0-71.1) %. Lymph % (Auto) 15.8 L (19.3-51.7) %. Storey % (Auto) 6.5 (4.7-12.5) %. Eos % (Auto) 1.0 (0.7-5.8). Baso % (Auto) 0.3 (0.1-1.2) %. Neut # (Auto) 7.56 H (1.56- 6.13) K/mm3. Lymph # (Auto) 1.57 (1.18-3.74) K/mm3. [place] # (Auto) 0.64 H (0.24-0.36) K/mm3. Eos # (Auto) 0.10 (0.04-0.36) K/mm3. Baso # (Auto) 0.03 (0.01-0.08) K/mm3. COVID-19 (SUZY) Negative (NEGATIVE). Med Orders - Current: Current Medications. Acetaminophen (Tylenol) 650 mg PO Q4H PRN. PRN Reason: Pain (Mild 1-3) and fever. Diphenhydramine HCl (Benadryl) 25 mg IVPUSH Q6H P RN. PRN Reason: pruritis. Ephedrine Sulfate (Ephedrine Sulfate) 5 mg IVPUSH ASDIRECTED PRN. PRN Reason: Hypotension. Fentanyl (Sublimaze) 100 mcg EPIDUR Q3H PRN. PRN Reason: Pain. Last Admin: 07/28/20 17:44 Dose: 100 mcg. Documented by: Fentanyl/Bupivacaine HCl (Fentanyl/Bupivacaine/Ns 2 Mcg-0.125% 100 Ml) 100 ml EPIDUR ASDIRECTED PRN. PRN Reason: Pain. Last Admin: 07/28/20 17:44 Dose: 100 ml. Documented by: Lactated Ringer's (Ringers, Lactated) 1,000 mls @ 100 mls/hr IV ASDIRECTED SHIRLENE. Last Admin: 07/28/20 18:03 Dose: 100 mls/hr. Documented by: Oxytocin/Lactated Ringer's (Pitocin In Lr 10 Units/1,000 Ml) 10 unit in 1,000 mls @ 12 mls/hr IV TITRATE SHIRLENE; Protocol. Last Admin: 07/28/20 18:36 Dose: 2 munits/min, 12 mls/hr. Documented by: Oxytocin/Lactated Ringer's (Pitocin In Lr 10 Units/1,000 Ml) 10 unit in 1,000 mls @ 100 mls/hr IV .CONTINUOUS SHIRLENE; Protocol. Nalbuphine HCl (Nubain) 10 mg IVPUSH Q2H PRN. PRN Reason: Pain. Sodium Chloride (Saline Flush) 10 ml FLUSH ASDIRECTED PRN. PRN Reason: Keep Vein Open. - Exam. General: Alert, Oriented. HEENT: Pupils Equal, Mucous Membr. Moist/[place]. Neck: Supple, Trachea Midline. Lungs: Clear to Auscultation, Normal Respiratory Effort. Cardiovascular: Regular Rate, Regular Rhythm. GI/Abdominal Exam: Normal Bowel Sounds, Soft, Non-Tender. Extremities: Normal Inspection, Non-Tender, No Pedal Edema, Normal Capillary Refill. Skin: Warm, Dry, Intact. Psy/Mental Status: Alert, Normal Affect, Normal Mood. - Problem List & Annotations. (1) 39 weeks gestation of . SNOMED Code(s): 51776648. Code(s): Z3A.39 - 39 WEEKS GESTATION OF Status: Acute Current Visit: No. (2) First degree laceration of perineum, delivered, current hospitalization. SNOMED Code(s): 907125731, 230486638. Code(s): O70.0 - FIRST DEGREE PERINEAL LACERATION DURING DELIVERY Status: Acute Current Visit: Yes. (3) Delivery normal. SNOMED Code(s): 97123738, 425176971. Code(s): O80 - ENCOUNTER FOR FULL-TERM UNCOMPLICATED DELIVERY Status: Acute Current Visit: Yes. - Problem List Review. Problem List Initiated/Reviewed/Updated: No. - My Orders. Last 24 Hours: My Active Orders. 07/28/20 13:15. Vital Signs [RC] PER UNIT ROUTINE. Resuscitation Status Routine. 07/28/20 16:18. Patient Status [ADT] Routine. Activity as Tolerated [RC] PFP. Communication Order [RC] ASDIRECTED. Notify Provider [RC] PFP. Notify Provider [RC] PRN. Urinary Catheter Assessment [RC] ASDIRECTED. Acetaminophen [TylenoL] 650 mg PO Q4H PRN. Nalbuphine [Nubain] 10 mg IVPUSH Q2H PRN. Sodium Chloride 0.9% [Saline Flush] 10 ml FLUSH ASDIRECTED PRN. Electronic Heart Tones Ext w TOCO [WOMSER] Routine. Electronic Heart Tones Internal [WOMSER] Per Unit Routine. Peripheral IV Insertion Adult [OM.PC] Routine. 07/28/20 16:19. Heart Tones [RC] ASDIRECTED. Peripheral IV Care [RC] . DIRECTED. 07/28/20 16:30. RAPID PLASMA REAGIN,RPR [CHEM] Routine. Lactated Ringers [Ringers, Lactated] 1,000 ml IV ASDIRECTED. Oxytocin/Lactated Ringers [Pitocin in LR 10 Units/1,000 ML] 10 unit in 1,000 ml IV .CONTINUOUS. Oxytocin/Lactated Ringers [Pitocin in LR 10 Units/1,000 ML] 10 unit in 1,000 ml IV TITRATE. 07/28/20 Dinner. Regular Diet [DIET]. - Plan. Plan:: Patient seen and examined by me and discussed with student. Plan delivery Diagnosis: Stroke: No - Discharge Data Discharge Date: 07/29/20 Discharge Disposition: Home, Self-Care 01 Condition: Good - Referral to Home Health Primary Care Physician: Justin Bradford MD - Discharge Diagnosis/Problem(s) (1) 39 weeks gestation of SNOMED Code(s): 31099076 ICD Code: Z3A.39 - 39 WEEKS GESTATION OF Status: Acute Current Visit: No (2) First degree laceration of perineum, delivered, current hospitalization SNOMED Code(s): 020574745, 083281480 ICD Code: O70.0 - FIRST DEGREE PERINEAL LACERATION DURING DELIVERY Status: Acute Current Visit: Yes (3) Delivery normal SNOMED Code(s): 03206554, 472313392 ICD Code: O80 - ENCOUNTER FOR FULL-TERM UNCOMPLICATED DELIVERY Status: Acute Current Visit: Yes - Patient Summary/Data Complications: None Consults: None Hospital Course: Uneventful - Patient Instructions Diet: Usual Diet as Tolerated Driving: Do Not Drive (X48 hours) Showering/Bathing: May Shower Notify Provider of: Fever, Increased Pain, Swelling and Redness, Drainage, Nausea and/or Vomiting - Discharge Plan *PRESCRIPTION DRUG MONITORING PROGRAM REVIEWED*: Not Applicable *COPY OF PRESCRIPTION DRUG MONITORING REPORT IN PATIENT YASMINE: Not Applicable Prescriptions/Med Rec: Acetaminophen 650 mg PO Q6H #50 capsule Docusate Sodium [Colace Clear] 50 mg PO BID #50 capsule Home Medications: Home Meds Pnv No.95/Ferrous Fum/Folic AC [ Tablet] 1 tab PO DAILY 07/18/17 [History] Fexofenadine HCl [Lisa Allergy] 60 mg PO DAILY PRN 07/28/20 [History] Acetaminophen 650 mg PO Q6H #50 capsule 07/29/20 [Rx] Benzocaine/Menthol [Dermoplast Pain Relief [place]] 56 gm TOP ASDIRECTED PRN canister 07/29/20 [Rx] Docusate Sodium [Colace Clear] 50 mg PO BID #50 capsule 07/29/20 [Rx] Ibuprofen [Motrin] 600 mg PO Q6H PRN tablet 07/29/20 [Rx] Referrals: Justin Bradford MD [Primary Care Provider] - (Patient has an appointment to see me in 2 weeks) - Discharge Summary/Plan Comment DC Time >30 min.: No - Patient Data Vitals - Most Recent: Last Vital Signs Temp 98.8 F 07/29/20 09:08 Pulse 83 07/29/20 09:08 Resp 15 07/29/20 09:08 BP 115/66 07/29/20 09:08 Pulse Ox 100 07/29/20 09:08 Weight - Most Recent: 153 lb I&O - Last 24 hours: Intake & Output 07/28/20 07/29/20 07/29/20 22:59 06:59 14:59 Intake Total 3800 Balance 3800 Lab Results - Last 24 hrs: Laboratory Results - last 24 hr 07/28/20 07/28/20 07/28/20 Range/Units 16:30 16:30 18:00 WBC 9.92 (3.98-10.04) K/mm3 RBC 4.08 (3.98-5.22) M/mm3 Hgb 11.3 (11.2-15.7) gm/dl Hct 35.2 (34.1-44.9) % MCV 86.3 D (79.4-94.8) fl MCH 27.7 (25.6-32.2) pg MCHC 32.1 L (32.2-35.5) g/dl RDW Std Deviation 41.8 (36.4-46.3) fL Plt Count 238 (182-369) K/mm3 MPV 9.8 (9.4-12.3) fl Neut % (Auto) 76.2 H (34.0-71.1) % Lymph % (Auto) 15.8 L (19.3-51.7) % Storey % (Auto) 6.5 (4.7-12.5) % Eos % (Auto) 1.0 (0.7-5.8) Baso % (Auto) 0.3 (0.1-1.2) % Neut # (Auto) 7.56 H (1.56-6.13) K/mm3 Lymph # (Auto) 1.57 (1.18-3.74) K/mm3 [place]y # (Auto) 0.64 H (0.24-0.36) K/mm3 Eos # (Auto) 0.10 (0.04-0.36) K/mm3 Baso # (Auto) 0.03 (0.01-0.08) K/mm3 RPR Non-reactive (NONREACTIVE) COVID-19 (SUZY) Negative (NEGATIVE) 07/29/20 Range/Units 04:10 WBC 11.24 H (3.98-10.04) K/mm3 RBC 4.26 (3.98-5.22) M/mm3 Hgb 11.7 (11.2-15.7) gm/dl Hct 37.1 (34.1-44.9) % MCV 87.1 (79.4-94.8) fl MCH 27.5 (25.6-32.2) pg MCHC 31.5 L (32.2-35.5) g/dl RDW Std Deviation 41.5 (36.4-46.3) fL Plt Count 231 (182-369) K/mm3 MPV 10.4 (9.4-12.3) fl Neut % (Auto) 70.6 (34.0-71.1) % Lymph % (Auto) 18.1 L (19.3-51.7) % Storey % (Auto) 8.3 (4.7-12.5) % Eos % (Auto) 2.0 (0.7-5.8) Baso % (Auto) 0.4 (0.1-1.2) % Neut # (Auto) 7.95 H (1.56-6.13) K/mm3 Lymph # (Auto) 2.03 (1.18-3.74) K/mm3 [place]y # (Auto) 0.93 H (0.24-0.36) K/mm3 Eos # (Auto) 0.22 (0.04-0.36) K/mm3 Baso # (Auto) 0.04 (0.01-0.08) K/mm3 RPR (NONREACTIVE) COVID-19 (SUZY) (NEGATIVE) Med Orders - Current: Current Medications Acetaminophen (Tylenol) 650 mg PO Q4H PRN PRN Reason: mild pain or fever Benzocaine/Menthol (Dermoplast Pain Relief [place]) 56 gm TOP ASDIRECTED PRN PRN Reason: perineal comfort measures Last Admin: 07/28/20 21:08 Dose: 1 canister Documented by: Docusate Sodium (Colace) 100 mg PO BID PRN PRN Reason: Constipation Ibuprofen (Motrin) 600 mg PO Q4H PRN PRN Reason: Mild pain or fever Last Admin: 07/28/20 21:07 Dose: 600 mg Documented by: Loratadine (Claritin) 10 mg PO DAILY PRN PRN Reason: Allergies Prenat Multivit/[place]/Iron/Folic Ac ( Plus Iron) 1 each PO DAILY SHIRLENE Cadet (Tucks) 1 pad TOP ASDIRECTED PRN PRN Reason: perineal comfort measures Last Admin: 07/28/20 21:08 Dose: 1 tub Documented by: Discontinued Medications Acetaminophen (Tylenol) 650 mg PO Q4H PRN PRN Reason: Pain (Mild 1-3) and fever Diphenhydramine HCl (Benadryl) 25 mg IVPUSH Q6H PRN PRN Reason: pruritis Ephedrine Sulfate (Ephedrine Sulfate) 5 mg IVPUSH ASDIRECTED PRN PRN Reason: Hypotension Fentanyl (Sublimaze) 100 mcg EPIDUR Q3H PRN PRN Reason: Pain Last Admin: 07/28/20 17:44 Dose: 100 mcg Documented by: Fentanyl/Bupivacaine HCl (Fentanyl/Bupivacaine/Ns 2 Mcg-0.125% 100 Ml) 100 ml EPIDUR ASDIRECTED PRN PRN Reason: Pain Last Admin: 07/28/20 17:44 Dose: 100 ml Documented by: Lactated Ringer's (Ringers, Lactated) 1,000 mls @ 100 mls/hr IV ASDIRECTED SHIRLENE Last Admin: 07/28/20 18:03 Dose: 100 mls/hr Documented by: Oxytocin/Lactated Ringer's (Pitocin In Lr 10 Units/1,000 Ml) 10 unit in 1,000 mls @ 12 mls/hr IV TITRATE SHIRLENE; Protocol Last Admin: 07/28/20 18:36 Dose: 2 munits/min, 12 mls/hr Documented by: Oxytocin/Lactated Ringer's (Pitocin In Lr 10 Units/1,000 Ml) 10 unit in 1,000 mls @ 100 mls/hr IV .CONTINUOUS SHIRLENE; Protocol Nalbuphine HCl (Nubain) 10 mg IVPUSH Q2H PRN PRN Reason: Pain Sodium Chloride (Saline Flush) 10 ml FLUSH ASDIRECTED PRN PRN Reason: Keep Vein Open
[2020-07-29] MEDS: Ibuprofen 600 MG Tab PO PRN (12:53)
[2020-07-29 21:55] VITALS: BP 115/65; PULSE 74
== END 2020-07-29 20:35 | disposition home or self-care (01) | DRG 807 ==
LOC: JD.OB 13:06 → JD.OBCHECK 13:06 → JD.OB 16:18 → OBSVTOIN 19:28 → JD.OB 19:29
PROVIDERS: ADMIT Obstetrics & Gynecology; ATTEND Obstetrics & Gynecology
PROC: 10E0XZZ Delivery of Products of Conception, External Approach (ICD-10-PCS; principal; 2020-07-28)
PROC: 10907ZC Drainage of Amniotic Fluid, Therapeutic from Products of Conception, Via Natural or Artificial Opening (ICD-10-PCS; 2020-07-28)
PROC: 3E0R3BZ Introduction of Anesthetic Agent into Spinal Canal, Percutaneous Approach (ICD-10-PCS; 2020-07-28)
DX: O70.0 First degree perineal laceration during delivery (principal); Z37.0 Single live birth; Z3A.39 39 weeks gestation of pregnancy; Z20.828 Contact with and (suspected) exposure to other viral communicable diseases
CPT/HCPCS: 36415; 51701; 59025; 59409; 85025; 86592; A9270-GY; J2590; J3010; J3490; J7120; U0002